=== PATIENT | male | born 1950 | race Caucasian/White ===

== ENCOUNTER → 2017-05-25 | Outpatient (CLI) | payer OTHER, MEDICARE ==
[~2017-05-25] MED LIST: ASPEC81 PO; CALC500C70 PO; LISI20TA3 PO; MULT-506 PO; OMEG10007 PO; PRLSR20 PO
[2017-05-25 12:37] LABS: HEMATOCRIT 45.1 % (42-52); MEAN CELL VOLUME 92.4 fL (80-100); MEAN CORPUSCULAR HEMOGLOBIN 30.5 pg (25-34); MEAN PLATELET VOLUME 12.6 fL (7.4-10.4); PLATELET COUNT 126 K/uL (130-400); RED BLOOD COUNT 4.88 M/uL (4.7-6.1); WHITE BLOOD COUNT 4.29 K/uL (4.8-10.8)
[2017-05-25 12:38] LABS: COMPLETE YES; EOSINOPHIL % 1.7 %; LYMPH ABS # 0.59 K/uL (1.2-3.4); LYMPHOCYTE % 13.8 %; NEUTROPHILS % 51.7 %; PLT ESTIMATE DECREASED; VARIANT LYMPHOCYTE % 23.3 %
[2017-05-25 12:40] LABS: BLOOD UREA NITROGEN 13 mg/dl (7-18); BUN/CREATININE RATIO 18.7 (10-20); CALCIUM 8.7 mg/dl (8.5-10.1); CARBON DIOXIDE 33 mmol/L (21-32); CHLORIDE 107 mmol/L (98-107); GLUCOSE 81 mg/dl (70-99); POTASSIUM 3.9 mmol/L (3.5-5.1); SODIUM 140 mmol/L (136-145)
[2017-05-25 12:43] LABS: CHOLESTEROL 156 mg/dl (0-200); CHOLESTEROL/HDL RATIO 3.7; HDL CHOLESTEROL 42 mg/dl; LDL CHOLESTEROL CALCULATED 80 mg/dl; TRIGLYCERIDES 172 mg/dl (0-150); VERY LOW DENSITY LIPOPROT CALC 34 mg/dl
== END | disposition home or self-care (01) ==
LOC: C.LAB 10:47
DX: D72.819 Decreased white blood cell count, unspecified (principal); E78.5 Hyperlipidemia, unspecified

== ENCOUNTER 2024-04-29 08:28 | Inpatient (IN) ==
--- NOTE | 2024-04-29 08:46 | Emergency Department Note ---
Impression & Plan SBO (small bowel obstruction), Abdominal pain ED Provider Note NAME: JENNA RIBEIRO AGE: 74 SEX: M : 1950 ARRIVES VIA: Walk-In INFORMANT: Patient, ED PROVIDER(S): Mason Travis DO CHIEF COMPLAINT: Abdominal pain HPI: The patient is a 74-year-old male who presented to the emergency department for an evaluation of abdominal pain. The patient describes lower abdominal pain which began approximately 1 week ago. The patient states the pain did worsen over the last 48 hours. He describes as a constant pain but sometimes it waxes and wanes with crampy pain. The patient denies having any vomiting at this time but he did have vomiting previously.. He has noticed some nausea. He denies having any black or tarry stools. The patient has not been seen by his family doctor. The patient came the emergency room today because of worsening pain. He denies having any chest pain or difficulty breathing. He did have a recent inguinal hernia repair. ROS: See above HPI for pertinent positives & negatives. A total of 10 systems reviewed and were otherwise negative. PAST MEDICAL HISTORY: See Below PAST SURGICAL HISTORY: See Below FAMILY HISTORY: See Below SOCIAL HISTORY: See Below HOME MEDICATIONS: See Below ALLERGIES: See Below VITALS: See Below PHYSICAL EXAMINATION: GENERAL: Patient is awake alert in no acute distress patient is resting comfortably and showing no signs of anxiety EYES: The conjunctivae are clear. The pupils are round and reactive. EARS, NOSE, MOUTH AND THROAT: The nose is without any evidence of any deformity. NECK: The neck is nontender and supple. RESPIRATORY: Normal respiratory effort is noted there is no evidence of wheezing rhonchi or rales CARDIOVASCULAR: Regular rate and rhythm noted there no murmurs rubs or gallops normal S1 normal S2. GASTROINTESTINAL: The abdomen was distended. There is diffuse tenderness to palpation but especially in the left upper and left lower quadrants. There is guarding in the left upper quadrant. MUSCULOSKELETAL/EXTREMITIES: There is no evidence of gross deformity full range of motion is noted in the hips and shoulders. SKIN: There is no obvious evidence of any rash. There are no petechiae, pallor or cyanosis noted. NEUROLOGIC: Patient is awake alert and oriented x3. MEDICAL DECISION MAKING: The patient is a 74-year-old male who presented to the emergency department for an evaluation of abdominal pain. The patient had abdominal pain going on for approximately 1 week. The patient was having some nausea and vomiting. Pain worsened over the course the last 48 hours so he presented to the emergency department. He is status post inguinal hernia repair. He does have a history of a previous left inguinal hernia repair. I discussed the patient's laboratory and radiographic studies with him. I discussed his condition with the on-call general surgical group. They have agreed to evaluate the patient in the emergency department. After evaluation he felt he was a good candidate for surgical intervention. Triage Nursing notes reviewed. Prior medical records reviewed Vital Signs: reviewed and remarkable for elevated blood pressure. Differential diagnosis: Etiologies such as appendicitis, diverticulitis, obstruction, inflammatory bowel disease, renal colic, PUD, biliary pathology, pancreatitis, mesenteric ischemia, aortic pathology, infections, genitourinary, UTI, perforated viscus, as well as others were entertained. ER treatment provided: See below Diagnostics interpreted by me: ECG: none Cardiac Monitoring: An order was placed for continuous cardiac monitoring. The monitor shows a rate of 50 bpm with sinus bradycardia. Laboratory studies: As stated above and show below. Imaging studies: See below. Radiographic imaging was reviewed by myself Consultation(s): I did asha this case with [facility] who is on for general surgery. Past Med/Surg History Problem List (Updated 04/29/24 @ 11:39 by Mason Travis DO) Abdominal pain (Acute) SBO (small bowel obstruction) (Acute) Small bowel obstruction Mental status alteration Medical History History of mitral valve prolapse 5 YR AGO, PT TOLD CLEARED UP Vegan diet HX BRAIN FOG AFTER JOGGING 2020...CARDIAC & NEURO TESTING...NORMAL...DETERMINED TO BE R/T DEPLETED PROTEIN INTAKE PT FASTS EVERY 2 WEEKS FOR A CONSECUTIVE 2 DAYS TO CONTROL HIS WEIGHT Post-nasal drip CHRONIC SINCE AGE 20'S / NO CHANGE IN BASELINE Low back problem NO LIMITATIONS /CONTROLS WITH EXCERCISE Redundant colon History of constipation WBC decreased MONITORS Borderline high cholesterol HX /NOT SURE CURRENT DETAILS /MONITOR History of high blood pressure TX FOR IN PAST, NO TX FOR > 5 YRS Surgical History Hx of cataract extraction LEFT History of tonsillectomy History of surgery BENIGN CYST REMOVED LEFT WRIST History of inguinal hernia History of colonoscopy Family History Sister Family history of diabetes mellitus Social History Smoking Status: Never smoker Second Hand Exposure: No; Do You Dip or Chew Tobacco: No; Hx Alcohol Use: Yes (MAYBE 4 PER YR) Alcohol type: wine Hx Substance Use: No Preferred Language: Azerbaijani Communication Ability: Effective Sleeve Baster Required: No Beliefs That Will Affect Care: None Current Living Situation: Spouse Feels Safe at Home: Yes Assistive Devices: Glasses Allergies Allergies Allergy/AdvReac Type Severity Reaction Status Date / Time No Known Allergies Allergy Verified 09/12/22 08:27 Home Meds Home Medications Medication Instructions Recorded Confirmed cyanocobalamin (vitamin B-12) 1,000 mcg PO QAM 08/31/22 09/12/22 1,000 mcg tablet (Vitamin B-12) guar gum 1 packet PO QAM 08/31/22 09/12/22 multivitamin 1 cap PO BID 08/31/22 09/12/22 omega-3 fatty acids 1,000 mg PO BID 08/31/22 09/12/22 polysaccharide iron complex 150 mg 150 mg PO QAM 08/31/22 09/12/22 iron capsule (iFerex 150) Results & Data (ED) Vital Signs Vital Signs - 24 hr 04/29/24 08:32 04/29/24 09:00 04/29/24 09:26 Temperature 36.5 C Temperature Source Temporal Artery Scan Pulse Rate 92 H 47 L Pulse Rate [Apical] Pulse Rate from SpO2 Sensor Respiratory Rate 18 Respiratory Effort / Characteristics Non-Labored Spontaneous Respiratory Depth Normal Respiratory Pattern Regular Blood Pressure 180/85 H Blood Pressure [Left Arm] Blood Pressure Mean 116 Blood Pressure Mean [Left Arm] Blood Pressure Position Lying Blood Pressure Position [Left Arm] Pulse Oximetry 95 Oxygen Delivery Method Room Air Room Air Sepsis Recent Fever Within 48 Hours No Sepsis New/Unexplained Change in Mental Status N/A Sepsis Action Taken by Nursing No Action Required 04/29/24 09:33 04/29/24 10:09 04/29/24 10:30 Temperature Temperature Source Pulse Rate 46 L 57 L 45 L Pulse Rate [Apical] Pulse Rate from SpO2 Sensor 45 L 56 L 47 L Respiratory Rate 17 21 17 Respiratory Effort / Characteristics Respiratory Depth Respiratory Pattern Blood Pressure 141/75 H 151/82 H Blood Pressure [Left Arm] Blood Pressure Mean 97 105 Blood Pressure Mean [Left Arm] Blood Pressure Position Blood Pressure Position [Left Arm] Pulse Oximetry 98 98 99 Oxygen Delivery Method Room Air Room Air Sepsis Recent Fever Within 48 Hours Sepsis New/Unexplained Change in Mental Status Sepsis Action Taken by Nursing 04/29/24 10:31 04/29/24 10:46 04/29/24 10:50 Temperature 36.8 C Temperature Source Oral Pulse Rate Pulse Rate [Apical] 53 L 50 L Pulse Rate from SpO2 Sensor Respiratory Rate 18 17 Respiratory Effort / Characteristics Non-Labored Spontaneous Respiratory Depth Normal Respiratory Pattern Regular Blood Pressure Blood Pressure [Left Arm] 151/82 H 145/84 H Blood Pressure Mean Blood Pressure Mean [Left Arm] 105 104 Blood Pressure Position Blood Pressure Position [Left Arm] Semi-fowlers Pulse Oximetry 99 98 Oxygen Delivery Method Room Air Room Air Room Air Sepsis Recent Fever Within 48 Hours Sepsis New/Unexplained Change in Mental Status Sepsis Action Taken by Correction Medications Current Medication List: was personally reviewed by me Laboratory Data Attestation: I reviewed the patient's lab results. 04/29/24 08:52 04/29/24 08:52 Lab Results 04/29/24 04/29/24 Range/Units 08:52 08:59 WBC 9.73 (4.8-10.8) K/ul RBC 4.90 (4.70-6.10) M/uL Hgb 15.0 (14.0-18.0) g/dl POC Hgb 15.6 (14.0-18.0) g/dl Hct 45.5 (42.0-52.0) % POC Hct 46 (42-52) % MCV 92.9 (80.0-100.0) fL MCH 30.6 (25.0-34.0) pg MCHC 33.0 (32.0-36.0) g/dL RDW Std Deviation 44.2 (36.4-46.3) fL RDW Coeff of Amari 12.9 (11.5-14.5) % Plt Count 144 (130-400) K/uL MPV 12.4 (9.4-12.4) fL Immature Gran % (Auto) 0.3 % Neut % (Auto) 89.2 % Lymph % (Auto) 5.7 % [place] % (Auto) 4.7 % Eos % (Auto) 0.0 % Baso % (Auto) 0.1 % Neut # (Auto) 8.68 H (1.40-6.50) K/uL Lymph # (Auto) 0.55 L (1.20-3.40) K/uL [place] # (Auto) 0.46 (0.11-0.59) K/uL Eos # (Auto) 0.00 (0.00-0.50) K/uL Baso # (Auto) 0.01 (0.00-0.20) K/uL Immature Gran # (Auto) 0.03 (0.01-0.20) K/uL POC Sodium 138 (135-144) mmol/L Sodium 137 (136-145) mmol/L POC Potassium 4.3 (3.3-5.0) mmol/L Potassium 4.3 (3.5-5.1) mmol/L POC Chloride 101 (101-112) mmol/L Chloride 103 (98-107) mmol/L Carbon Dioxide 28 (21-32) mmol/L POC Total CO2 25 (24-31) mmol/L Anion Gap 6 (3-11) POC Anion Gap 18.0 (16-25) mmol/L POC BUN 22 H (7-18) mg/dl BUN 22 (6-23) mg/dl Creatinine 0.80 (0.6-1.4) mg/dl POC Creatinine 0.7 (0.6-1.3) mg/dl Est Cr Clr Drug Dosing 73.4 ml/min eGFR 92.29 BUN/Creatinine Ratio 27.5 H (10-20) Glucose 144 H (70-99(Fasting)) mg/dl POC Glucose (other) 143 H (70-99) mg/dl Calcium 10.0 (8.6-10.3) mg/dl POC Ioniz Calcium Kathy 1.22 (1.12-1.32) mmol/l Total Bilirubin 0.5 (0.2-1.0) mg/dl AST 20 (13-39) U/L ALT 12 (7-52) U/L Alkaline Phosphatase 61 (34-104) U/L Total Protein 6.8 (6.0-8.3) gm/dl Albumin 4.5 (3.4-5.0) gm/dl Globulin 2.3 L (2.5-4.0) gm/dl Albumin/Globulin Ratio 2.0 (0.9-2) Lipase 13 (11-82) U/L Administered Medications Discontinued Medications Acetaminophen (Ofirmev) 1,000 mg in 100 mls @ 400 mls/hr IV NOW STA Stop: 04/29/24 08:53 Last Infusion: 04/29/24 09:20 Dose: Infused Documented By: Admin: 04/29/24 09:05 Dose: 400 mls/hr Documented By: COY Piperacillin Sod/Tazobactam Sod (Zosyn) 4.5 gm in 100 mls @ 200 mls/hr IV NOW ONE; Protocol Stop: 04/29/24 09:55 Last Infusion: 04/29/24 10:27 Dose: Infused Documented By: Admin: 04/29/24 09:57 Dose: 200 mls/hr Documented By: COY Ioversol (Optiray 320 100ml) 94 ml IV ONCE ONE Stop: 04/29/24 09:19 Last Admin: 04/29/24 09:18 Dose: 94 ml Documented By: ADRIANA Ondansetron HCl (Ondansetron Inj 2 Mg/Ml 2 Ml Vial) 4 mg IV NOW STA Stop: 04/29/24 08:40 Last Admin: 04/29/24 09:05 Dose: 4 mg Documented By: COY Imaging Data Attestation: I personally reviewed and interpreted this imaging study as follows: My Impression: CT of the abdomen and pelvis was obtained in the emergency department. My interpretation is signs of bowel obstruction noted, no free air, final report below. Radiologist's Impression: Abdomen/Pelvis CT 04/29/24 08:39 CT OF THE ABDOMEN AND PELVIS WITH CONTRAST CLINICAL HISTORY: Lower abdominal pain. COMPARISON STUDY: None. TECHNIQUE: Following IV administration of 94 mL of Optiray, axial images of the abdomen and pelvis were obtained from the lung bases to the proximal femurs. Images were reviewed in the axial, sagittal, and coronal planes. IV contrast was administered without complication. Automated exposure control was utilized for the study. A dose lowering technique was utilized adhering to the principles of ALARA. CT DOSE: 598.18 mGy.cm FINDINGS: Mild circumferential distal esophageal wall thickening is present. There is a trace right pleural effusion. No pneumatosis, free air or portal venous gas is present. There is no biliary or pancreatic ductal dilatation. The gallbladder is mildly distended. A few subcentimeter hypodense hepatic lesions favor cysts. A low-attenuation 1.2 cm left adrenal nodule is likely benign. The right adrenal gland, kidneys and pancreas are unremarkable. A small amount of abdominal and pelvic ascites is noted. The mid to distal small bowel is moderately dilated and fluid-filled. Stool is noted within multiple small bowel loops. Transition point in close proximity to one another within the right lower quadrant are noted. There is swirling of the mesentery. Apparent defect is noted which contains multiple small bowel loops as well as probable involvement of the cecum. There is associated ascites and mesenteric edema. A short segment intussusception within the small bowel on image 167 is of doubtful significance. Prostate is mildly enlarged. There are postoperative findings consistent with right inguinal hernia repair. IMPRESSION: 1. Findings consistent with a high-grade small bowel obstruction with transition points within the right lower quadrant and swirling of the mesentery and probable involvement of the cecum. The findings raise the possibility of an internal hernia with possible closed loop obstruction. Associated ascites and mesenteric edema. Surgical consultation is recommended. 2. Previous right inguinal hernia repair. ACT 112: Negative or not required by law. Electronically signed by: Jac Edgar M.D. 04/29/2024 9:39 AM Discharge Plan Visit Data Chief Complaint: Abdominal Pain Stated Complaint: SEVERE ABD PAIN, DOC REF ED Provider: Mason Travis Discharge Problem: SBO (small bowel obstruction), Abdominal pain Patient Disposition: Being Evaluated by Surgeon Discharge Instructions Interventions: ED Discharge Assessment Last Done: 04/29/24 10:46 Discharge Problem: Abdominal pain Qualifiers: Abdominal location: left lower quadrant Qualified Code(s): R10.32 - Left lower quadrant pain
[2024-04-29] MEDS: ACETAMINOPHEN 1,000 MG/100 ML VIAL IV STA (09:05)
[2024-04-29] MEDS: ONDANSETRON INJ 2 MG/ML 2 ML VIAL IV STA (09:05)
[2024-04-29 09:10] LABS: iSTAT Creatinine 0.7 mg/dl (0.6-1.3); iSTAT Hemoglobin 15.6 g/dl (14.0-18.0); iSTAT Ionized Calcium 1.22 mmol/l (1.12-1.32); iSTAT Potassium 4.3 mmol/L (3.3-5.0)
[2024-04-29 09:15] LABS: Basophils # (auto) 0.01 K/uL (0.00-0.20); Basophils % (auto) 0.1 %; Hematocrit (blood only) 45.5 % (42.0-52.0); Immature Granulocytes # (auto) 0.03 K/uL (0.01-0.20); Immature Granulocytes % (auto) 0.3 %; Lymphocytes # (auto) 0.55 K/uL (1.20-3.40); Lymphocytes % (auto) 5.7 %; Mean Corpuscular Hemoglobin 30.6 pg (25.0-34.0); Mean Corpuscular Volume 92.9 fL (80.0-100.0); Mean Platelet Volume 12.4 fL (9.4-12.4); Monocytes # (auto) 0.46 K/uL (0.11-0.59); Monocytes % (auto) 4.7 %; Neutrophils # (auto) 8.68 K/uL (1.40-6.50); Neutrophils % (auto) 89.2 %; Platelet Count 144 K/uL (130-400); RDW Coefficient of Variation 12.9 % (11.5-14.5); RDW Standard Deviation 44.2 fL (36.4-46.3); White Blood Count 9.73 K/ul (4.8-10.8)
[2024-04-29] MEDS: OPTIRAY 320 100ml IV ONE (09:18)
[2024-04-29 09:33] LABS: Albumin Level 4.5 gm/dl (3.4-5.0); BUN Creatinine Ratio 27.5 (10-20); Bilirubin,Total 0.5 mg/dl (0.2-1.0); Creatinine Clr Calc Pharmacy 73.4 ml/min; Globulin 2.3 gm/dl (2.5-4.0); Potassium 4.3 mmol/L (3.5-5.1); Total Protein 6.8 gm/dl (6.0-8.3)
--- NOTE | 2024-04-29 09:41 | CT Scan Report ---
CT OF THE ABDOMEN AND PELVIS WITH CONTRAST CLINICAL HISTORY: Lower abdominal pain. COMPARISON STUDY: None. TECHNIQUE: Following IV administration of 94 mL of Optiray, axial images of the abdomen and pelvis we re obtained from the lung bases to the proximal femurs. Images were reviewed in the axial, sagittal, and coronal planes. IV contrast was administered without complication. Automated exposure control wa s utilized for the study. A dose lowering technique was utilized adhering to the principles of ALARA . CT DOSE: 598.18 mGy.cm FINDINGS: Mild circumferential distal esophageal wall thickening is present. There is a trace right p leural effusion. No pneumatosis, free air or portal venous gas is present. There is no biliary or cisneros creatic ductal dilatation. The gallbladder is mildly distended. A few subcentimeter hypodense hepatic lesions favor cysts. A low-attenuation 1.2 cm left adrenal nodule is likely benign. The right adrena l gland, kidneys and pancreas are unremarkable. A small amount of abdominal and pelvic ascites is not ed. The mid to distal small bowel is moderately dilated and fluid-filled. Stool is noted within multi ple small bowel loops. Transition point in close proximity to one another within the right lower quad rant are noted. There is swirling of the mesentery. Apparent defect is noted which contains multiple small bowel loops as well as probable involvement of the cecum. There is associated ascites and mesen teric edema. A short segment intussusception within the small bowel on image 167 is of doubtful signi ficance. Prostate is mildly enlarged. There are postoperative findings consistent with right inguina l hernia repair. IMPRESSION: 1. Findings consistent with a high-grade small bowel obstruction with transition points within the ri ght lower quadrant and swirling of the mesentery and probable involvement of the cecum. The findings raise the possibility of an internal hernia with possible closed loop obstruction. Associated ascites and mesenteric edema. Surgical consultation is recommended. 2. Previous right inguinal hernia repair. ACT 112: Negative or not required by law. Electronically signed by: Jac Edgar M.D. 04/29/2024 9:39 AM
[2024-04-29] MEDS: PIPERACILLIN/TAZOBACTAM 4.5 GM/100 ML BAG IV ONE (09:57)
--- NOTE | 2024-04-29 10:23 | History & Physical Report ---
Date of Service April 29, 2024 Assessment & Plan (1) Small bowel obstruction: Plan: His CT images and results were personally viewed and interpreted by myself He does have a high-grade small bowel obstruction and concern for a closed-loop small bowel obstruction Based on his imaging findings and abdominal exam, we will proceed with emergent exploration Will plan on exploratory laparotomy, possible bowel resection, possible ostomy Consent was obtained, risks discussed including bleeding, infection, anastomotic leak History of Present Illness Chief Complaint: Small bowel obstruction Primary Care Provider: Julian Gray DO This is a 74-year-old male who presented to the ER with 2 weeks of abdominal pain, generalized in nature. He states that over the last day or so the pain got significantly worse. He describes it as sharp cramping that comes and goes. No aggravating or relieving factors. He has had nausea and emesis as well. His last normal bowel movement was yesterday. He states he is not passing flatus. He did have a history of a laparoscopic right inguinal hernia repair in February 2024 with [facility] general surgery at [facility]. Otherwise he has had no abdominal surgeries. He denies any fevers or chills. Allergies Allergy/AdvReac Type Severity Reaction Status Date / Time No Known Allergies Allergy Verified 09/12/22 08:27 Home Medications Medication Instructions Recorded Confirmed Type cyanocobalamin (vitamin B-12) 1,000 mcg PO QAM 08/31/22 09/12/22 History 1,000 mcg tablet (Vitamin B-12) guar gum 1 packet PO QAM 08/31/22 09/12/22 History multivitamin 1 cap PO BID 08/31/22 09/12/22 History omega-3 fatty acids 1,000 mg PO BID 08/31/22 09/12/22 History polysaccharide iron complex 150 mg 150 mg PO QAM 08/31/22 09/12/22 History iron capsule (iFerex 150) Past Med/Surg History Problem List (Updated 04/29/24 @ 10:21 by Ivan Edwards DO) Small bowel obstruction Mental status alteration Medical History History of mitral valve prolapse 5 YR AGO, PT TOLD CLEARED UP Vegan diet HX BRAIN FOG AFTER JOGGING 2020...CARDIAC & NEURO TESTING...NORMAL...DETERMINED TO BE R/T DEPLETED PROTEIN INTAKE PT FASTS EVERY 2 WEEKS FOR A CONSECUTIVE 2 DAYS TO CONTROL HIS WEIGHT Post-nasal drip CHRONIC SINCE AGE 20'S / NO CHANGE IN BASELINE Low back problem NO LIMITATIONS /CONTROLS WITH EXCERCISE Redundant colon History of constipation WBC decreased MONITORS Borderline high cholesterol HX /NOT SURE CURRENT DETAILS /MONITOR History of high blood pressure TX FOR IN PAST, NO TX FOR > 5 YRS Surgical History Hx of cataract extraction LEFT History of tonsillectomy History of surgery BENIGN CYST REMOVED LEFT WRIST History of inguinal hernia History of colonoscopy Family History Sister Family history of diabetes mellitus Social History Smoking Status: Never smoker Second Hand Exposure: No; Do You Dip or Chew Tobacco: No; Hx Alcohol Use: Yes (MAYBE 4 PER YR) Alcohol type: wine Hx Substance Use: No Preferred Language: Filipino Communication Ability: Effective Web Design Specialist Required: No Beliefs That Will Affect Care: None Current Living Situation: Spouse Feels Safe at Home: Yes Assistive Devices: Glasses Review of Systems Constitutional: no fever and no chills Eyes: no blind spots and no worsening vision Ear, Nose, Mouth, Throat: no ear pain, no tinnitus and no nasal congestion Respiratory: no cough and no dyspnea Cardiovascular: no chest pain and no dyspnea on exertion Gastrointestinal: + abdominal pain, + nausea, + vomiting a nd + constipation; no diarrhea/loose stools and no blood in stools Genitourinary: no dysuria or no urinary incontinence Musculoskeletal: no back pain and no neck pain Integumentary: no acne, no skin ulcer and no erythema Neurologic: no gait abnormality, no unsteadiness and no headache(s) Psychiatric: no behavioral changes and no depression Hematologic / Lymphatic: no easy bleeding and no easy bruising Physical Exam Constitutional: WD/WN, vitals as above Eyes: PERRL, conjunctivae normal, anicteric sclerae ENMT: external ear and nose normal, oropharynx normal Neck: trachea midline, no thyromegaly Respiratory: normal respiratory effort, lungs clear to auscultation Cardiovascular: RRR, no murmur, no edema Gastrointestinal (Abdomen): Inspection/Auscultation: abdomen normal to inspection and + abdomen distended Percussion/Palpation: + abdomen tender (Generalized), + guarding (Right lower quadrant) and abdomen soft; abdomen not rigid and no hernia Musculoskeletal: no cyanosis or clubbing, extremities motor strength 5/5 Skin: no rashes, warm and dry Neurologic: PERRL, EOMI, accommodation nl, no face palsy, no dysarthria Psychiatric: A+Ox3, euthymic affect Results & Data Results & Data Vital Signs (Past 12 Hours) Vital Signs Temp Pulse Resp BP Pulse Ox O2 Del Method 04/29/24 09:33 46 L 17 141/75 H 98 04/29/24 09:26 47 L 04/29/24 09:00 Room Air 04/29/24 08:32 36.5 C 92 H 18 180/85 H 95 Room Air Diagnostic Findings CT OF THE ABDOMEN AND PELVIS WITH CONTRAST CLINICAL HISTORY: Lower abdominal pain. COMPARISON STUDY: None. TECHNIQUE: Following IV administration of 94 mL of Optiray, axial images of the abdomen and pelvis were obtained from the lung bases to the proximal femurs. Images were reviewed in the axial, sagittal, and coronal planes. IV contrast was administered without complication. Automated exposure control was utilized for the study. A dose lowering technique was utilized adhering to the principles of ALARA. CT DOSE: 598.18 mGy.cm FINDINGS: Mild circumferential distal esophageal wall thickening is present. There is a trace right pleural effusion. No pneumatosis, free air or portal venous gas is present. There is no biliary or pancreatic ductal dilatation. The gallbladder is mildly distended. A few subcentimeter hypodense hepatic lesions favor cysts. A low-attenuation 1.2 cm left adrenal nodule is likely benign. The right adrenal gland, kidneys and pancreas are unremarkable. A small amount of abdominal and pelvic ascites is noted. The mid to distal small bowel is moderately dilated and fluid-filled. Stool is noted within multiple small bowel loops. Transition point in close proximity to one another within the right lower quadrant are noted. There is swirling of the mesentery. Apparent defect is noted which contains multiple small bowel loops as well as probable involvement of the cecum. There is associated ascites and mesenteric edema. A short segment intussusception within the small bowel on image 167 is of doubtful significance. Prostate is mildly enlarged. There are postoperative findings consistent with right inguinal hernia repair. IMPRESSION: 1. Findings consistent with a high-grade small bowel obstruction with transition points within the right lower quadrant and swirling of the mesentery and probable involvement of the cecum. The findings raise the possibility of an internal hernia with possible closed loop obstruction. Associated ascites and mesenteric edema. Surgical consultation is recommended. 2. Previous right inguinal hernia repair. PG Care Time/CCT Total # of Minutes Spent Total Time Spent with Patient: Total time spent is greater than 50% in coordination of care (as documented) at patient's floor/unit and/or counseling patient: Coding Level of Care Code 75412 INT INP/OBS CARE MIN Diagnoses Small bowel obstruction K56.609
[2024-04-29] MEDS ORDERED: SUCCINYLCHOLINE 100MG/5ML SYR IV ONE (10:29)
[2024-04-29] MEDS ORDERED: PROPOFOL IV EMULSION 10 MG/ML 20 ML VIAL IV ONE (10:29)
[2024-04-29] MEDS ORDERED: fentaNYL citrate PF 100 MCG/2 ML VIAL ONE ×2 (10:29→12:00)
[2024-04-29] MEDS ORDERED: ONDANSETRON INJ 2 MG/ML 2 ML VIAL ONE (10:29)
[2024-04-29] MEDS ORDERED: DEXAMETHASONE SOD INJ 4 MG/ML VIAL ONE (10:29)
[2024-04-29] MEDS ORDERED: LIDOCAINE 2% 2 ML VIAL/AMP(20MG/ML) INFIL ONE (10:29)
[2024-04-29] MEDS ORDERED: MIDAZOLAM HCL 1 MG/ML 2ML VIAL ONE (10:29)
[2024-04-29] MEDS ORDERED: ROCURONIUM BROMIDE 10 MG/ML 5 ML VIAL IV ONE ×6 (10:31)
[2024-04-29] MEDS ORDERED: DROPERIDOL 5 MG/2 ML VIAL IV PRN (10:39)
[2024-04-29] MEDS ORDERED: ATROPINE SULFATE 0.1 MG/ML 10ML SYR IV PRN (10:39)
[2024-04-29] MEDS ORDERED: ONDANSETRON INJ 2 MG/ML 2 ML VIAL IV PRN ×2 (10:39→14:47)
[2024-04-29] MEDS ORDERED: ePHEDrine sulfate 50 MG/ML AMP IV PRN (10:39)
--- NOTE | 2024-04-29 10:39 | Anesthesiology Consultation ---
Date of Service April 29, 2024 Assessment & Plan Chart Review Chart Review: Acceptable Risk for Surgery and Patient NOT seen in Pre Admission Testing Consults Requested none History Surgery Operation Date: 04/29/24 08:20 Proposed Procedures p Exploratory Laparotomy with Release of Bowel Obstruction, Possible Bowel Resection, Possible Ostomy - Ivan Edwards DO Height/Weight Height: 5 ft 7.5 in Weight: 65 kg Allergies Allergy/AdvReac Type Severity Reaction Status Date / Time No Known Allergies Allergy Verified 09/12/22 08:27 Medications Home Medications Medication Instructions Recorded Confirmed Last Taken cyanocobalamin (vitamin B-12) 1,000 mcg PO QAM 08/31/22 09/12/22 09/11/22 1,000 mcg tablet (Vitamin B-12) guar gum 1 packet PO QAM 08/31/22 09/12/22 09/11/22 multivitamin 1 cap PO BID 08/31/22 09/12/22 09/11/22 omega-3 fatty acids 1,000 mg PO BID 08/31/22 09/12/22 09/11/22 polysaccharide iron complex 150 mg 150 mg PO QAM 08/31/22 09/12/22 09/11/22 iron capsule (iFerex 150) Past Medical History Medical History History of mitral valve prolapse 5 YR AGO, PT TOLD CLEARED UP Vegan diet HX BRAIN FOG AFTER JOGGING 2020...CARDIAC & NEURO TESTING...NORMAL...DETERMINED TO BE R/T DEPLETED PROTEIN INTAKE PT FASTS EVERY 2 WEEKS FOR A CONSECUTIVE 2 DAYS TO CONTROL HIS WEIGHT Post-nasal drip CHRONIC SINCE AGE 20'S / NO CHANGE IN BASELINE Low back problem NO LIMITATIONS /CONTROLS WITH EXCERCISE Redundant colon History of constipation WBC decreased MONITORS Borderline high cholesterol HX /NOT SURE CURRENT DETAILS /MONITOR History of high blood pressure TX FOR IN PAST, NO TX FOR > 5 YRS Past Family History Family History Sister Family history of diabetes mellitus Past Surgical History Surgical History Hx of cataract extraction LEFT History of tonsillectomy History of surgery BENIGN CYST REMOVED LEFT WRIST History of inguinal hernia History of colonoscopy Social History Smoking Status: Never smoker Do You Dip or Chew Tobacco: No Hx Alcohol Use: Yes (MAYBE 4 PER YR) Alcohol type: wine alcohol intake frequency: holidays/special occasions only Hx Substance Use: No substance use type: does not use Physical Exam Vital Signs Last Vital Signs Temp 36.5 C 04/29/24 08:32 Pulse 53 L 04/29/24 10:31 Resp 18 04/29/24 10:31 BP 151/82 H 04/29/24 10:31 Pulse Ox 99 04/29/24 10:31 O2 Del Method Room Air 04/29/24 10:31 Testing Laboratory Results 04/29/24 08:52 04/29/24 08:52 04/29/24 08:59 POC Glucose (other) 143 H
[2024-04-29] MEDS: ceFAZolin 2000MG 2,000 MG/15 ML SYR IV ONE (11:44)
[2024-04-29] MEDS ORDERED: ceFAZolin 330 MG/ML 1 GM VIAL ONE ×2 (11:45)
[2024-04-29] MEDS ORDERED: SUGAMMADEX SODIUM 200 MG/2 ML VIAL IV ONE (12:02)
[2024-04-29] MEDS ORDERED: METOPROLOL TARTRATE 1 MG/ML VIAL IV ONE (12:19)
[2024-04-29] MEDS: BUPIVACAINE/EPINEPHRINE 0.25% 1:200,000 30 ML VIAL ONE (12:25)
[2024-04-29] MEDS ORDERED: hydrALAZINE HCL 20 MG/ML VIAL ONE (12:32)
--- NOTE | 2024-04-29 12:34 | Operative Report ---
PG Post Operative Report Pre & Post Diagnosis Operation Date: 04/29/24 08:20 Pre-Op Diagnosis: Small bowel obstruction Post-Op Diagnosis: Small bowel obstruction secondary to adhesion/staple in RLQ I identified the patient and participated in the time-out.: Yes Procedure Operation Date: 04/29/24 08:20 Actual Procedures p Exploratory Laparotomy with Release of Bowel Obstruction, Reduction of Internal Hernia - Ivan Edwards DO Surgeon Ivan Edwards DO Auto Tune Up Mechanic Gypsy Rico PA-C Estimated Blood Loss 25 Findings See Below Portion of terminal ileum attached to the right lateral sidewall with a staple from previous right inguinal hernia repair Specimens None Drains None Anesthesia Type General Complications none Disposition Disposition: Recovery Room Indications 74-year-old male with a closed-loop small bowel obstruction Description of Procedure The patient was brought to the OR and placed in the supine position with both arms abducted. At this time he underwent general endotracheal anesthesia without any problems. He was given appropriate pre-operative antibiotics. His abdomen was prepped and draped in the usual sterile fashion. Timeout was called. The procedure was verified as Exploratory laparotomy, possible bowel resection, possible ostomy. Surgical, anesthesia and nursing teams agreed and the procedure was begun. A standard midline incision was made using a #10 blade scalpel. This was carried down to the fascia using electrocautery. The midline fascia was then incised with electrocautery. The peritoneum was then entered bluntly. The incision was then opened up through its entirety. We immediately encountered some murky ascites and some mildly ischemic small bowel that was dilated. After placing retractors in the abdomen there was a portion of ileum that was adhered to the right lower quadrant at the site of his previous hernia repair. This was carefully lysed using electrocautery. We then started running the small bowel and it appeared that there was another staple found just proximal to the ileocecal valve right where the mesentery entered the bowel and this was adhered to another loop of small bowel causing a closed-loop obstruction. The staple was carefully removed and the bowel freed up. At this point the small bowel was eviscerated and ran from the ligament of Treitz to the cecum. The area of ileum that was involved in the obstruction turned pink very quickly and appeared viable. The mesentery was a little thickened from the obstruction but again without any signs of necrosis. There were no other adhesions within the abdomen or any areas of obstruction seen while running the small bowel. NG tube was confirmed in the correct position. The small bowel was placed back in the peritoneal cavity. At this point the wound was then irrigated until clear. Hemostasis was achieved using electrocautery. Hemostasis was complete. The fascia was then closed in a running fashion using 2 #1 looped PDS suture starting superiorly and inferiorly and meeting in the middle. Skin was closed with ann marie. Sterile dressing was applied. All needle and sponge counts were correct x 2. At this point the patient was awakened from anesthesia, and transported to PACU in stable condition. The physician marketing operations assistant was present and scrubbed for the entirety of the case. He was critical in positioning the patient, prepping and draping, retraction and exposure, closure of the incision and placement of the dressings. I attest to the content of the Intraoperative Record and any orders documented therein. Any exceptions are noted below.
[2024-04-29] MEDS: fentaNYL citrate PF 100 MCG/2 ML VIAL IV PRN (12:57)
[2024-04-29] MEDS: hydrALAZINE HCL 20 MG/ML VIAL ONE (13:32)
[2024-04-29] MEDS: hydrALAZINE HCL 20 MG/ML VIAL IV STA (13:32)
[2024-04-29] MEDS: HYDROmorphone INJ 1 MG/ML SYRINGE IV PRN (13:37)
--- NOTE | 2024-04-29 13:51 | Anesthesiology Progress Note ---
Date of Service April 29, 2024 Anesthesia Post Procedure Vital Signs Vital Signs: Temp Pulse Pulse Resp BP BP Pulse Ox 04/29/24 13:50 93 H 18 157/93 H 97 04/29/24 13:40 60 12 182/108 H 100 04/29/24 13:30 55 L 13 171/80 H 100 04/29/24 13:20 49 L 13 188/103 H 99 04/29/24 13:10 50 L 12 199/102 H 97 04/29/24 13:00 48 L 16 214/107 H 96 04/29/24 12:40 36.6 C 55 L 16 189/123 H 93 04/29/24 10:50 36.8 C 50 L 17 145/84 H 98 04/29/24 10:46 04/29/24 10:31 53 L 18 151/82 H 99 04/29/24 10:30 45 L 17 151/82 H 99 04/29/24 10:09 57 L 21 98 04/29/24 09:33 46 L 17 141/75 H 98 04/29/24 09:26 47 L 04/29/24 09:00 04/29/24 08:32 36.5 C 92 H 18 180/85 H 95 O2 Del Method O2 Flow Rate 04/29/24 13:50 Oxymask 2 04/29/24 13:40 Oxymask 4 04/29/24 13:30 Oxymask 4 04/29/24 13:20 Oxymask 4 04/29/24 13:10 Oxymask 6 04/29/24 13:00 Oxymask 6 04/29/24 12:40 Room Air 04/29/24 10:50 Room Air 04/29/24 10:46 Room Air 04/29/24 10:31 Room Air 04/29/24 10:30 Room Air 04/29/24 10:09 Room Air 04/29/24 09:33 04/29/24 09:26 04/29/24 09:00 Room Air 04/29/24 08:32 Room Air Pain Intensity Abdomen: Pain Intensity: 6 Transfer of Care Handoff Completed per policy Notes Mental Status: alert / awake / arousable Patient Amnestic to Procedure: Yes Nausea / Vomiting: adequately controlled Pain: adequately controlled Airway Patency, RR, SpO2: stable & adequate BP & HR: stable & adequate Hydration State: stable & adequate Anesthetic Complications: no major complications apparent and Pt Satisfied with anesthetic care
--- OUTSIDE RECORDS SUMMARY | 2024-04-29 14:09 | External Medical Summary | Summary of Care ---
Author Name Unknown Organization [facility] Address [address] [place] [address] Phone [phone] Care Team Providers Care Gaming Department Head Name Role Phone Julian Gray DO Primary Care Provider [phone] Reason for Visit * Reason Comments Post-Op IHR. Encounter Details Date Type Department Care Team (Late st Contact Info) Description 03/05/2024 10:45 AM EDT [facility] [place] [address] Jon Saravia MD [address] [place] [address] Right inguinal hernia*; Postop check Allergies No known active allergiesdocumented as of this encounter (statuses as of 03/05/2024) Medications Medication Sig Dispensed Refills Start Date End Date Status DAILY VITAMIN FORMULA PO TABS one tablet daily Act norberto Benefiber Oral Powder Take by mouth 2 times a day with morning and evening meals . 1 tsp twice daily Active Triamcinolone Acetonide 0.1 % External Lotion (Aristocort)Indic ations:Seborrheic dermatitis Apply to rash in nicole twice daily for 10 days 60 mL 08/26/2023 Active Additional Information Patient not taking.Reported on 02/12/2024 Nutritional Supplement Plus Oral Liquid Take by mouth. Iron supplement I ferex Active Ketoconazole 2 % External Shampoo (Nizoral) Lather into scalp and nicole in shower, leave in for 5 minutes, then rinse. Do this three times per week 120 mL 11 12/12/2023 Active Probiotic & Acidophilus Ex St Oral Capsule Take 1 Capsule by mouth every morning. Active oxyCODONE-Acetami nophen 5-325 MG Oral Tablet (Percocet) Take 1 Tablet by mouth every 6 hours as needed for Pain, Moderate. 10 Tablet 02/21/2024 Discontinue d(End of Procedure) documented as of this encounter (statuses as of 03/05/2024) Active Problems Problem Noted Date Diagnosed Date Right inguinal hernia 12/10/2023 Pure hypercholesterolemia 12/05/2022 Chronic midline low back pain without sciatica 0 12/05/2022 Vegan diet 12/12/2021 documented as of this encounter (statuses as of 03/05/2024) Resolved Problems Problem Noted Date Diagnosed Date Resolved Date Brain fog 12/12/2021 10/18/2023 documented as of this encounter (statuses as of 03/05/2024) Immunizations Name Administration Dates Next Due COVID-19 mRNA, LNP-s, No Pre serve, 2-Dose Series (Ouner) 03/14/2021,08/30/2020,08/09/2020 COVID-19, MRNA-LNP, 23-24, P F, 50 MCG/0.5 mL, 12 YRS AND ABOVE, IM (MODERNA-Spikevax) 03/26/2023 COVID-19, mRNA, LNP-s, PF, B ooster, 100mcg/0.5mg (Moderna) 11/06/2021 Pneumococcal Conjugate Vacc, 13 Valent (Prevnar) 04/04/2015 Pneumococcal Polysaccharide PPV23 (Pneumovax) 05/18/2022,07/06/2012 Seasonal Influenza, High Dos e, Trivalent, PF, IM (Fluzone HD) 04/29/2019 Seasonal Influenza, Quadriva lent Hd (Fluzone Hd) 03/26/2023 Seasonal Influenza, Quadriva lent Hd, 65+ Yrs 02/27/2022 Seasonal Influenza, Recombin ant, RIV4, PF, (Flublock) 03/18/2020 TDAP, Age 7 and older, IM (Adacel) 05/26/2018, Varicella Zoster Vaccine (Adult) 12/21/2014 Zoster Vaccine Recombinant (Shingrix) 07/18/2022 ,05/18/2022 documented as of this encounter Social History Tobacco Use Types Packs/Day Years Used Date Smoking Tobacco: Never Passive Smoke Exposure: Past Smokeless Tobacco: Never Alcohol Use Standard Drinks/Week Comments Yes 0 (1 standard drink = 0.6 oz pur e alcohol) rare PHQ-2 Answer Date Recorded PHQ Adult Total Score 0 06/24/2023 Hunger Vital Sign Answer Date Recorded Within the past 12 months, y ou worried that your food would run out before you got the money to buy more. Never true 06/24/19 24 Within the past 12 months, t he food you bought just didn't last and you didn't have money to get more. Never true 06/24/2023 Childcare Answer Date Recorded Do you feel overwhelmed with taking care of a child, family member or friend? No 06/24/2023 Does your family need help f inding childcare? (Household - for ages 0-17 years) Not on file 06/24/2023 Clothing Answer Date Recorded Have you been unable to get clothing when it was really needed? No 06/24/2023 Is your family able to get c lothes or diapers when needed? (Household - for ages 0-17 years) Not on file 06/24/2023 Personal Safety Answer Date Recorded Do you feel unsafe or have concerns for your saf ety? No 06/24/2023 Do you have concerns for you r family's safety? (Household - for ages 0-17 years) Not on file 06/24/2023 Utilities Answer Date Recorded Do you have trouble paying y our heating, water, or electric bill? No 06/24/2023 Is your family able to pay t he heat, water, or electric bill? (Household - for ages 0-17 years) Not on file 06/24/2023 Does your family have access to good internet? (Household - for ages 0-17 years) Not on file 06/24/2023 Employment Status Answer Date Recorded Are you unemployed or without regular income? No 06/24/2023 Does the household have a re gular source of income? (Household - for ages 0-17 years) Not on file 06/24/2023 Social Connections Answer Date Recorded How often do you feel lonely or isolated from th ose around you? Never 06/24/2023 Financial Resource Strain Answer Date R ecorded Do you have any trouble payi ng for your medications, or do you think you might in the future? No 06/24/2023 Does your family have troubl e paying for medicine? (Household - for ages 0-17 years) Not on file 06/24/2023 Transportation Needs Answer Date Record ed READ ONLY Do you have troubl e getting a ride to medical visits or work? Never True 06/24/2023 Does your family have a hard time getting a ride to doctors visits? (Household - for ages 0-17 years) Not on file 06/24/2023 Has lack of transportation k ept you from medical appointments, meetings, work, or from getting things needed for daily living? Check all that apply. (Adult - for ages 18 years and over) Not on file 06/24/2023 Do you (or your family) have trouble finding or paying for a ride (transportation)? (Household - for ages 0-17 years) Not on file 06/24/2023 Housing Stability Answer Date Recorded Do you currently live in a s helter or have no steady place to sleep at night? No 06/24/2023 READ ONLY Do you think you a re at risk of becoming homeless? No 06/24/2023 Does your family worry about paying for your home or becoming homeless? (Household - for ages 0-17 years) Not on file 0 06/24/2023 Are you homeless or worried that you might be in the future? (Adult - for ages 18 years and over) Not on file Are you (or your family) connie eless or worried that you might be in the future? (Household - for ages 0-17 years) Not on file Food Insecurity Answer Date Recorded Do you need food for this week? No 06/24/2023 Are you able to get enough f ood for your family? (Household - for ages 0-17 years) Not on file 06/24/2023 Does your family need food t his week? (Household - for ages 0-17 years) Not on file 06/24/2023 Do you always have enough fo od for your family? (Household - for ages 0-17 years) Not on file 06/24/2023 Sex and Gender Information Value Date Recorded Sex Assigned at Male 01/04/2022 11:56 AM EDT Gender Identity Male 01/04/2022 11:56 AM EDT Sexual Orientation Straight 01/04/2022 11 :56 AM EDT Job Start Date Occupation Industry Not on file Not on file Not on file documented as of this encounter Last Filed Vital Signs Vital Sign Reading Time Taken Comments Blood Pressure - - Pulse - - Temperature 36.5 C (97.7 F) 03/05/2024 10:38 AM E DT Respiratory Rate - - Oxygen Saturation - - Inhaled Oxygen Concentration - - Weight - - Height - - Body Mass Index - - documented in this encounter Progress Notes * Jon Saravia MD - 03/05/2024 10:41 AM EDT Demetrius Guevara is s/p a lap right inguinal hernia repair with mesh on 02/21/2024. The patient is overall doing well. Pain is controlled without any medications. Fever has not been present. This patient has no wound drainage and has no wound erythema. The patient has no drains in place. Patient is slowly resuming normal activities but still refraining from heavy lifting as recommended. PE: Temperature 36.5 C (97.7 F). General: alert, healthy, and no distress Exam (Male): no abnormalities of scrotal contents, no hernia detected, testicular tenderness, hematoma present Incision site: healing well and clean, dry and intact Assessment: Demetrius Guevara is doing well. We discussed continued weight lifting restrictions fora full 3-4 weeks after surgery. All questions answered. Plan: follow - up 1 month Jon Saravia MD documented in this encounter Nursing Notes * Bryan Salas MED ASSIST - 03/05/2024 10:38 AM EDT Chief Complaint Patient presents with Post-Op IHR. Verified patient. No pain. Appetite is ok. Incision is healing well. Bowel movement is ok. documented in this encounter Plan of Treatment Upcoming Encounters Date Type Department Care Team (Late st Contact Info) Description 05/26/2024 2:00 PM EST Office Visit Family Practice [address] [place] [address] [facility] [place] [id number] Julian Gray, [address] [place] [address] Health Maintenance Due Date Last Done Comments COVID-19 Vaccine ( season) 2024 03/26/2023, 11/06/2021, 03/14/2021, Additional history exists Influenza Vaccine (FLU shot) (#1) 2024 03/26/2023, 02/27/2022, 03/18/2020, Additional history exists Adult Wellness Visit 05/15/2024 05/15/2023, 05/18/20 22 Depression Screening 06/24/2024 06/24/2023 Colonoscopy 08/09/2024 08/09/2021, 07/19, 08/09/2021, Additional history exists DTap/Tdap Vaccines (3 - Td or Tdap) 05/26/2028 05/26/2018, 02/12/2008 Pneumococcal Vaccine: 65+ Years Completed 05/18/2022, 04/04/2015, 07/06/2012 Zoster Vaccines Completed 07/18/2022, 07/2021, 12/21/2014 HPV (Gardasil) Vaccine Aged Out No lo nger eligible based on patient's age to complete this topic Hepatitis B Vaccine Aged Out No longe r eligible based on patient's age to complete this topic MENINGOCOCCAL (MENACTRA/MENVEO) Aged Out No longer eligible based on patient's age to complete this topic documented as of this encounter Medical Devices Implanted Type Area Surgical Garment Inspector Device Identifier Shelf Expiration Date Model / Serial / Lot Mesh 13x9cm Monofilament Hernia Anatomical Medium Right Preshaped With Marking Polypropylene Dextile - [id number] Implanted:Qty: 1 on 02/21/2024 by Jon Saravia MD at OR [facility] Right: Groin BORAIDIEN 02/15/2028 [id number] / / [id number] documented as of this encounter Visit Diagnoses Diagnosis Right inguinal hernia- Primary Inguinal hernia without mention of obstruction or gangrene, unilateral or unspecified, (not specified as recurrent) Postop check Follow-up examination, following unspecified surgery documented in this encounter Advance Directives * Full Code (Latest Code Status on File) Date Activated Date Inactivated Comments 02/21/2024 10:33 AM 02/21/2024 4:22 PM This order re flects the patients wishes and were consensually agreed upon. Question Answer Comments Discussion of Advance Directives occurred with: Patient * Full Code Date Activated Date Inactivated Comments 02/21/2024 8:06 AM 02/21/2024 10:33 AM This order re flects the patients wishes and were consensually agreed upon. Question Answer Comments Discussion of Advance Directives occurred with: Patient Care Teams Gaming Department Head Relationship Specialty Start Date End Date Julian Gray DO [address] [facility] [place] [address] PCP - General Internal Medicine 12/06/23 documented as of this encounter
--- OUTSIDE RECORDS SUMMARY | 2024-04-29 14:09 | External Medical Summary | Summary of Care ---
Author Name Unknown Organization [facility] Address [address] [place] [address] Phone [phone] Care Team Providers Care Monitor Car Operator Name Role Phone Julian Gray DO Primary Care Provider [phone] Reason for Visit * Reason Comments Follow Up Post-Op Lap IHR on 02/21/2024 Encounter Details Date Type Department Care Team (Late st Contact Info) Description 04/06/2024 3:45 PM EDT Office Visit General Surgery, [facility] [address] [place] [address] Jon Saravia MD [address] [place] [address] Right inguinal hernia*; Postop check Allergies No known active allergiesdocumented as of this encounter (statuses as of 04/06/2024) Medications Medication Sig Dispensed Refills Start Date End Date Status DAILY VITAMIN FORMULA PO TABS one tablet daily Act norberto Benefiber Oral Powder Take by mouth 2 times a day with morning and evening meals . 1 tsp twice daily Active Triamcinolone Acetonide 0.1 % External Lotion (Aristocort)Indicati ons:Seborrheic dermatitis Apply to rash in nicole twice [...] 1 Capsule by mouth every morning. Active Iron 325 (65 Fe) MG Oral Tablet Take by mouth. Active [place] III EPA+DHA 1000 MG Oral Capsule Take by mouth. Active documented as of this encounter (statuses as of 04/06/2024) Active Problems Problem Noted Date Diagnosed Date Right inguinal hernia 12/10/2023 Pure hypercholesterolemia 12/05/2022 Chronic midline low back pain without sciatica 0 12/05/2022 Vegan diet 12/12/2021 documented as of this encounter (statuses as of 04/06/2024) Resolved Problems Problem Noted Date Diagnosed Date Resolved Date Brain fog 12/12/2021 10/18/2023 documented as of this encounter (statuses as of 04/06/2024) Immunizations Name Administration Dates Next Due COVID-19 mRNA, LNP-s, No Pre serve, 2-Dose Series (Trendabl) 03/14/2021,08/30/2020,08/09/2020 COVID-19, MRNA-LNP, 23-24, P F, 50 [...] on file documented as of this encounter Progress Notes * Jon Saravia MD - 04/06/2024 3:44 PM EDT Demetrius Guevara is s/p a lap right inguinal hernia repair with mesh on 02/21/2024. The patient is overall doing well. The patient is not having any pain. Fever has not been present. This patient has no wound drainage and has no wound erythema. The patient has no drains in place. Patient is slowly resuming normal activities but still refraining from heavy lifting as recommended. PE: There were no vitals taken for this visit. General: alert, healthy, and no distress Incision site: healing well and clean, dry and intact Assessment: Demetrius Guevara is doing well. All questions answered. Plan: follow - up PRN Jon Saravia MD documented in this encounter Nursing Notes * Laurence Katz LPN - 04/06/2024 3:37 PM EDT Patient identified by name and date of . Chief Complaint Patient presents with Follow Up Post-Op Lap IHR on 02/21/2024 documented in this encounter Plan of Treatment Upcoming Encounters Date Type Department Care Team (Late st Contact Info) Description 05/26/2024 2:00 PM EST Office Visit Family Practice [address] [place] [address] [place] [address] Julian Gray DO [address] [facility] [place] [address] Health Maintenance Due Date Last Done Comments [...] this encounter Medical Devices Implanted Type Area Windows Application Packager Device Identifier Shelf Expiration Date Model / Serial / Lot Mesh 13x9cm Monofilament Hernia Anatomical Medium Right Preshaped With Marking Polypropylene Dextile - [id number] Implanted:Qty: 1 on 02/21/2024 by Jon Saravia MD at OR [facility] Right: Groin COVIDIEN 02/15/2028 [id number] / / [id number] documented as of this encounter Visit Diagnoses [...] Advance Directives occurred with: Patient Care Teams Monitor Car Operator Relationship Specialty Start Date End Date Julian Gray DO [address] [place] [address] PCP - General Internal Medicine 12/06/23 documented as of this encounter
--- OUTSIDE RECORDS SUMMARY | 2024-04-29 14:10 | External Medical Summary | Summary of Care ---
Author Name Unknown Organization [facility] Address [address] [place] [address] Phone [phone] Care Team Providers Care Storm Window Installer Name Role Phone Michael Gray DO Primary Care Provider [phone] Reason for Visit * Auth/Cert Specialty Diagnoses / Procedures Referred By Miki t Referred To Contact Diagnoses Right inguinal hernia Right inguinal hernia [K40.90] Procedures LAPAROSCOPY; REPAIR INITIAL INGUINAL HERNIA LAPAROSCOPIC REPAIR INGUINAL HERNIA INITIAL Jon Saravia MD [email or web address] [place] [address] Or [facility] [address] [place] [address] Referral ID Status Reason Start Date Expiration Date Visits Re quested Visits Authorized [id number] Encounter Details Date Type Department Care Team (Latest Contact Info) Description 02/21/2024 7:51 AM EDT - 02/21/2024 12:12 PM EDT Hospital Encounter OR [facility], Operating Room [facility] [address] [place] [id number] Jon Saravia MD [address] [place] [address] Discharge Disposition: Home - Self Care Allergies No known active allergiesdocumented as of this encounter (statuses as of 02/22/2024) Medications Medication Sig Dispensed Refills Start Date End Date Status DAILY VITAMIN FORMULA PO TABS one tablet daily Act norberto Benefiber Oral Powder Take by mouth 2 times a day with morning and evening meals . 1 tsp twice daily Active Triamcinolone Acetonide 0.1 % External Lotion (Aristocort)Indicat ions:Seborrheic dermatitis Apply to rash in nicole twice [...] 1 Capsule by mouth every morning. Active oxyCODONE-Acetamino phen 5-325 MG Oral Tablet (Percocet) Take 1 Tablet by mouth every 6 hours as needed for Pain, Moderate. 10 Tablet 02/21/2024 Active documented as of this encounter (statuses as of 02/22/2024) Active Problems Problem Noted Date Diagnosed Date Right inguinal hernia 12/10/2023 Pure hypercholesterolemia 12/05/2022 Chronic midline low back pain without sciatica 0 12/05/2022 Vegan diet 12/12/2021 documented as of this encounter (statuses as of 02/22/2024) Resolved Problems Problem Noted Date Diagnosed Date Resolved Date Brain fog 12/12/2021 10/18/2023 documented as of this encounter (statuses as of 02/22/2024) Immunizations Name Administration Dates Next Due COVID-19 mRNA, LNP-s, No Pre serve, 2-Dose Series ([employer]) 03/14/2021,08/30/2020,08/09/2020 COVID-19, MRNA-LNP, 23-24, P F, 50 [...] Sign Reading Time Taken Comments Blood Pressure 133/71 02/21/2024 12:10 PM EDT Pulse 58 02/21/2024 12:10 PM EDT Temperature 36.1 C (97 F) 02/21/2024 11:16 AM EDT Respiratory Rate 14 02/21/2024 12:10 PM EDT Oxygen Saturation 98% 02/21/2024 12:10 PM EDT Inhaled Oxygen Concentration - - Weight 60.3 kg (133 lb) 02/21/2024 8:17 AM EDT Height 170.8 cm (5' 7.25") 02/21/2024 8:17 AM ED T Body Mass Index 20.68 02/21/2024 8:17 AM EDT documented in this encounter Discharge Instructions * Discharge Instr - AVS* Jon Saravia MD - 02/21/2024 8:09 AM EDT Discharge Date: 02/21/2024 The information below provides you with the instructions and the list of medications you need to betaking following discharge from the hospital. If you have any questions, please ask before leaving.Please carry this letter with you when you see your doctor in the clinic. If you have questions, you can reach us at the numbers above. Post Anesthesia Instructions: 1. Do not drive today. 2. Resume driving when surgeon permits, in 3 day(s) as long as not taking narcotics. 3. Do not make important decisions or sign legal documents today. 4. Call surgeon for: Temperature evaluation greater than 101.5 degrees Uncontrollable pain Excessive Bleeding Persistent Nausea and vomiting Medication intolerance (nausea, vomiting, or rash) 5. For nausea and vomiting use only clear liquids such as: tea, soda, bouillon until nausea subsides, then gradually increase diet as tolerated. Don't take narcotics on empty stomach, this can cause worsening of your nausea. 6. If you have any concerns or questions, call your surgeon's office, . If the physician is unavailable and it is an emergency, call 911 or go to the nearest emergency room. Instructions for: Inguinal Hernia, Laparoscopic Hernia or Cholecystectomy, Umbilical or Ventral Hernia INCISION CARE: If present, remove any outer dressing(s) in 36 hours. The incision(s) may be sealed with sutures/ann marie, a skin adhesive (Dermabond), or covered with white adhesive tapes known as steri-strips. Either way there is no need to cover up the incisions again with gauze unless desired or there is drainage. TO PREVENT SWELLING: Swelling and bruising around incisions is common. If groin surgery was performed, the swelling and bruising can involve the scrotum and penis/labial area. Do not be alarmed. It will resolve on its own with time. Apply an ice pack to the incision (20 min on, 20 min off) for the first 24-48 hours to help with pain and swelling. SHOWER: You may shower 36 hours after surgery and get the incision(s) or steri-strips wet with soapy water and gently pat them dry. If the steri-strips come off in the shower, do not become concerned. If they are still in place 10 days after surgery, you may remove them. PAIN MEDICATION: You will usually be given a prescription for a narcotic pain medication (usually Vicodin or Percocet). Options for non-constipating pain medications include products that include ibuprofen or Tylenol. Avoid taking narcotic pain medication on an empty stomach as this makes more prone to nausea and vomiting, which is a side effect of these medications. BOWEL MEDICATION: To combat constipation, you may take over the counter laxatives, fiber therapy, or prune juice. Drink plenty of fluids. COMMON COMPLAINTS: Shoulder pain and gas pains from the carbon dioxide used during the procedure is common with laparoscopic preocedures. Your body absorbs this gas naturally over a 48-72 hour period. Tylenol (Acetaminophen) or Ibuprofen (Motrin) is usually sufficient to relieve this discomfort. If you have had a laparoscopic ventral hernia repair there will be a roll of gauze which should remain over your hernia site anchored with the abdominal binder. Try to keep this in place as much as possible before your first post-op clinic visit; you may take it off temporarily for baths or showers. URINATION: If you cannot urinate, sit in a warm bath then try again. Activity : Rest today. Do not do any heavy lifting (more than 20lbs pounds) or any vigorous exercise for 4 week(s). Return to School or Work: May return to work/school as tolerated on light duty; 4 week(s) to returnwithout restrictions. Diet: Resume previous diet Follow-up Visit with: When: in 2 weeks Discharged To: Home documented in this encounter Progress Notes * Jon Saravia MD - 02/21/2024 10:33 AM EDT [facility] [address] [address] OUTPATIENT SURGERY DISCHARGE SUMMARY NOTE Name: Demetrius Guevara Location: [place] [facility] Date: 02/21/2024 Time: 10:33 AM Surgery Date: 02/21/2024 Procedure: LAPAROSCOPIC REPAIR INGUINAL HERNIA INITIAL Right Surgeon: Jon Saravia MD Discharge Diagnosis: right inguinal hernia After examination of this patient, I have determined he is ready for discharge to home when the patient meets criteria. Discharge instructions were given to the patient. documented in this encounter H&P Notes * Jon Saravia MD - 02/21/2024 8:05 AM EDT No changes B CTA RRR : R IH Source Note - Jon Saravia MD - 01/22/2024 10:56 AM EDT CC- abdominal wall bulge Patient returns to schedule lap R IH; H&P remains as below: Ref: MICHAEL GRAY[[id number]] [phone] [place] [id number] (office) [phone] (fax) HPI.: Demetrius Guevara is a 73 year old male seen in consultation for a right inguinal hernia. They have had mild symptoms present for months duration. Their symptomsdid not start at work. The pain is dull and intermittent. Their lump is reducible. He has no Sxs of chronic constipation,chronic cough,difficulty urinating. Past Medical History Past Medical History: Diagnosis Date Brain fog 12/12/2021 Chronic midline low back pain without sciatica 12/05/2022 Hypercholesterolemia Vegan diet 12/12/2021 Past Surgical History Past Surgical History: Procedure Laterality Date CATARACT SURGERY,COMPLEX Bilateral 09/05/22 and 09/12/[address] Hanson DENTAL SURGERY PROCEDURE NEC INFORMATION 06/17/1973 ganglion cyst left wrist MISCELLANEOUS ORDER ([facility] ONLY) 06/17/2013 oral surgery REMOVE TONSILS & ADENOIDS, UNDER 12 age 5 Tonsillectomy/Adenoids,<11 Y/O REPAIR INITIAL INGUINAL HERNIA REDUCIBLE AGE 4 OR MORE Left 06/17/19731973 left inguianl hernia repair VASECTOMY 06/17/1994 in the [place] area Medications: Current Outpatient Medications Medication Sig Dispense Refill DAILY VITAMIN FORMULA PO TABS one tablet daily Benefiber Oral Powder Take by mouth 2 times a day with morning and evening meals . 1 tsp twice daily Nutritional Supplement Plus Oral Liquid Take by mouth. Iron supplement I ferex Ketoconazole 2 % External Shampoo (Nizoral) Lather into scalp and nicole in shower, leave in for 5 minutes, then rinse. Do this three times per week 120 mL 11 Triamcinolone Acetonide 0.1 % External Lotion (Aristocort) Apply to rash in nicole twice daily for 10 days 60 mL 0 No current facility-administered medications for this visit. Allergies: Allergies as of 01/22/2024 (No Known Allergies) Family History Family History Problem Relation Name Age of Onset Dementia Mother Lung cancer Father Other (traumatic brain injury) Sister Heart attack Brother Colon cancer Grandmother (Maternal) Social History Social History Socioeconomic History Marital status: Spouse name: Not on file Number of children: Not on file Years of education: Not on file Highest education level: Not on file Occupational History Not on file Tobacco Use Smoking status: Never Passive exposure: Past Smokeless tobacco: Never Vaping Use Vaping status: Never Used Substance and Sexual Activity Alcohol use: Yes Comment: rare Drug use: Never Sexual activity: Yes Partners: Female Other Topics Concern Not on file Social History Narrative Not on file Social Determinants of Health Financial Resource Strain: Low Risk (06/24/2023) Financial Resource Strain Do you have any trouble paying for your medications, or do you think you might in the future? (Adult - for ages 18 years and over): No Does your family have trouble paying for medicine? (Household - for ages 0-17 years): Not on file Food Insecurity: No Food Insecurity (06/24/2023) Food Insecurity Do you need food for this week? (Adult - for ages 18 years and over): No Are you able to get enough food for your family? (Household - for ages 0-17 years): Not on file Does your family need food this week? (Household - for ages 0-17 years): Not on file Do you always have enough food for your family? (Household - for ages 0-17 years): Not on file Transportation Needs: No Transportation Needs (06/24/2023) Transportation Needs Do you have trouble getting a ride to medical visits or work? (Adult - for ages 18 years and over):Never True Does your family have a hard time getting a ride to doctors visits? (Household - for ages 0-17 years): Not on file Has lack of transportation kept you from medical appointments, meetings, work, or from getting things needed for daily living? Check all that apply. (Adult - for ages 18 years and over): Not on file Do you (or your family) have trouble finding or paying for a ride (transportation)? (Household - for ages 0-17 years): Not on file Social Connections: Socially Integrated (06/24/2023) Social Connections How often do you feel lonely or isolated from those around you? (Adult - for ages 18 years and over): Never Housing Stability: Low Risk (10/08/2023) Received from [facility], [facility] Housing Stability Unstable Housing in the Last Year: Not on file ROS: GEN: no weight loss, fever, fatigue HEENT: no changes in vision or hearing, no sinus problems, no sore throat, no hoarseness RESPIRATORY: no cough, wheezing, SOB or change in breathing CARDIOVASCULAR: no exertional chest pain, dyspnea, palpitations GI: no melena or hemetemesis, no change in bowel habits, no nausea or vomiting : no dysuria, hematuria, frequency MUSCULOSKELETAL: no change in joint pains, no new arthritis PSYCHIATRIC: no significant anxiety or depression, unchanged sleep pattern HEME: no bleeding tendency, no clotting tendency NEURO: no significant headache, no seizures , no tremors SKIN: no new rashes, no itching Physical Exam: There were no vitals taken for this visit. Constitutional: alert, healthy, well nourished Head: normocephalic, atraumatic Eyes: conjunctiva non-injected, sclera white Ears: pinna normal shape and color Nose: no purulent discharge Mouth: lips, mucosa, and tongue normal Neck: supple, no adenopathy Lungs: clear to auscultation, breath sounds are equal and symmetric Heart: regular rate & rhythm and no murmur, gallops or rubs Abdomen: soft, non-tender, normal bowel sounds, no hernias Back: normal curvature, normal ROM Extremities: no joint deformities, effusion, or inflammation, no edema, no skin discoloration Neuro: alert, gait normal, motor normal Skin: no obvious rashes or significant lesions Exam: no penile abnormality, no urethral discharge, no abnormalities of scrotal contents; reducible right inguinal hernia; left negative previously repaired Imaging: EXAM: US ABDOMEN LIMITED-10/21/2023 11:21 am HISTORY: right inguinal hernia. TECHNIQUE: Targeted ultrasound was performed of the right inguinal region. Images were obtained in area of concern as directed by the patient. COMPARISON: None FINDINGS: Fat containing right inguinal hernia. IMPRESSION IMPRESSION: Fat containing right inguinal hernia. IMP: Demetrius Guevara is a 73 year old male with a right inguinal hernia which is currently symptomatic. For this reason, I have recommended that the patient consider a hernia repair. This could be performed in open or laparoscopic approach. We reviewed that for hernias, laparascopic surgery is useful in bilateral, recurrent hernias, when associated with umbilical hernia, or where there is a benefit seen in shorter recovery time. Risks of laparascopic surgery including a slightly higher recurrence rate, slightly higher chance of nerve injury and possibility of injury to bowel or blood vessels were also discussed. I typically recommend an open procedure for initial inguinal hernias that would be difficult laparoscopically due to previous surgeries or when recovery time is not an issue. I discussed the surgery in detail and the complications related to the surgery and the anesthesia. Risks include, but are not limited to: recurrence of the hernia, persistent pain in the groin from injury to or entrapment of groin nerves, numbness, seroma formation, bleeding, infection, a significant risk of urinary retention in males with a bilateral repair and mesh infection requiring mesh removal. Patient understands these risks. Expected same day nature of surgery and postoperative recovery period reviewed. Activity restrictions postoperatively to include no heavy lifting or high impact activity for four to six weeks reviewed. All questions were answered to the patient's satisfaction and consent was signed. We also reviewed the signs and symptoms of incarceration and the patient was instructed to go directly to the emergency room should this occur. PLAN: Lap R IH with mesh. . documented in this encounter Nursing Notes * Oksana Mejia RN - 02/21/2024 12:12 PM EDT VSS. Reports pain at 3/10 on pain scale, tolerable. Denies nausea and tolerating PO intake. Dermabond sites dry and intact. Pt, , and son verbalized understanding of all discharge instructions. Patient stable for discharge home. Transported via wheelchair to private vehicle with staff presence to care of clamp truck driver. * Estefany Cortes RN - 02/21/2024 11:10 AM EDT Patient awake and oriented. Tolerating PO ice chips without nausea. Pain level is tolerable for patient 410. Vital signs stable. Ready for discharge from PACU 1. * Estefany Cortes RN - 02/21/2024 10:27 AM EDT Patient received to pacu 1 status post right lap inguinal hernia repair with mesh. Patient sleeping comfortably. No signs of pain. No signs of nausea. Respirations are even and unlabored on 6L O2 via mask. NSR on monitor. Abdomen soft and non distended. Dermabond to abdominal lap sites x3 is clean, dry and intact, ice pack applied. Vital signs stable. * Yue Reid RN - 02/21/2024 8:24 AM EDT Surgical consent verified with patient. Patient agrees with listed procedure and verified signature. documented in this encounter OR Notes * OR Surgeon - Jon Saravia MD - 02/21/2024 8:06 AM EDT Operative note Date of procedure: 02/21/2024 Pre-op diagnosis: right inguinal hernia Post-op diagnosis: same Procedure: Laparoscopic right inguinal hernia repair with mesh Surgeon: Jon Saravia MD Hat And Cap Drying Room Attendant: none Anesthesia: GETA w/marcaine EBL: 5 cc Drains: none Complications: none Specimens: none Findings: large indirect right inguinal hernia Indication for procedure: This patient presents with a symptomatic right inguinal hernia and they desire repair. They understand the risks of recurrence, nerve injury, chronic pain, loss of testicle,bowel or blood vessel injury, open procedure, and wound problems including infection and dehisence.Consent has been signed. The patient received 2 gm of ancef preoperatively. After induction of general endotracheal anesthesia, their abdomen and suprapubic areas were prepped and draped under sterile conditions. A transverse supraumbilical incision was made and a veress needle was then placed into the peritoneal cavity while applying upward traction on the abdominal wall with towel clamps. Once the needle was confirmed to be in the proper space insufflation was begun to achieve an intraabdominal pressure of 10-12mmHg.The veress needle was removed and a optically viewed blunt 12mm trocar and port was inserted directly viewing the layers of the abdominal wall and applying gentle upward traction with the towel clamps into the peritoneal cavity. A good diagnostic laparoscopic view was performed and the above findings were noted. A 11 mm port and trocar was placed in the patient's RLQ and a 5 mm port and trocar was then placed in the LLQ, both under direct visualization. A laparoscopic endoshears was used to open the peritoneum above the hernia from the medial umbilical ligament then laterally along the anterior abdominal wall. The inferior flap of the peritoneum was then dissected free of the spermatic cordtaking care to not injure its contents, this was opened medially to expose the pubic tubercle and laterally to facilitate easy placement of the mesh. Once the inferior flap was adequately mobilized the superior flap of peritoneum was likewise properly mobilized with both sharp and blunt dissection.The mesh was placed into the inguinal floor preperitoneally and secured with a multi-feed stapler, taking care not to place ann marie below the inguinal ligament laterally. The mesh was then re-peritonalized with stapler, no mesh was exposed. The ports were then removed and the pneumoperitoneum was de compressed. Vicryl sutures were then used to close the fascia, SQ, and skin. Dermabond was used to reinforce the closures. Sterile dressings were applied. The patient was awakened from anesthesia andtaken to recovery in stable condition. Jon Saravia MD 02/21/2024 10:18 AM documented in this encounter Plan of Treatment Upcoming Encounters Date Type Department Care Team (Late st Contact Info) Description 03/05/2024 10:45 AM EDT Office Visit General Surgery, [address] [place] [address] Jon Saravia MD [address] [place] [address] 05/26/2024 2:00 PM EST Office Visit Family Practice [address], [place] [address] [place] [id number] Michael Gray, [address] [place] [address] Health Maintenance Due Date Last Done Comments COVID-19 Vaccine (2022-24 season) 2024 03/26/2023, 11/06/2021, 03/14/2021, Additional history [...] this encounter Medical Devices Implanted Type Area Interior Design Faculty Member Device Identifier Shelf Expiration Date Model / Serial / Lot Mesh 13x9cm Monofilament Hernia Anatomical Medium Right Preshaped With Marking Polypropylene Dextile - [id number] Implanted:Qty: 1 on 02/21/2024 by Jon Saravia MD at OR [facility] Right: Groin ERNESTINA 02/15/2028 [id number] / / [id number] documented as of this encounter Visit Diagnoses Diagnosis Right inguinal hernia- Primary Inguinal hernia without mention of obstruction or gangrene, unilateral or unspecified, (not specified as recurrent) documented in this encounter Administered Medications Inactive Administered Medications - up to 3 most recent administrations Medication Order MAR Action Action Date Dose Rate Site Acetaminophen (Tylenol) tab 975 mg 975 mg, Oral, PREOP, First dose on Sat02/21/24 at 0845, Last dose on Sat02/21/24 at 0845, For 1 dose, Maximum 4 g acetaminophen/day. Avoid in patients with severe hepatic impairment or severe active liver disease. Administer 60 minutes prior to OR., Pre-Op Given 02/21/2024 8:20 AM EDT 975 mg ceFAZolin in dextrose (Ancef) ivpb 2 g 2 g, IV Piggyback, PREOP, 1 dose, First dose on Sat02/21/24 at 0845, Administer 60 minutes prior to skin incision, Pre-Op New Bag 02/21/2024 9:18 AM EDT 2 g 100 mL/hr chlorhexidine gluconate cloth 2 % pad 1 Pad 1 Pad, External, PREOP, First dose on Sat02/21/24 at 0845, Last dose on Sat02/21/24 at 0845, For 1 dose, Cleanse surgical site area immediately before transferring intra-op, Pre-Op Given 02/21/2024 8:24 AM EDT 1 Pad Abdomen Right Lower dexAMETHasone Sodium Phosphate (Decadron) 4 MG/ML inj 4 mg 4 mg, IV Push, PRN Nausea, Starting on Sat02/21/24 at 1029, Until Sat02/21/24 at 1617, For 1 dose, PROTECT FROM LIGHT, PACU fentaNYL (PF) inj 25 mcg 25 mcg, IV Push, PRN Pain, Severe, Starting on Sat02/21/24 at 1029, Until Sat02/21/24 at 1617, For 6 doses, When given IV Push its recommended that the dose be given over 3 to 5 minutes., PACU isolyte-S pH 7.4 infusion Intravenous, at 100 mL/hr, Plasma-LYTE 148, isolyte-S, and isolyte-S pH 7.4 are considered equivalent - including for MAR barcode scanning., CONTINUOUS, Starting on Sat02/21/24 at 0845, Until Sat02/21/24 at 1617, Pre-Op Continue from Pre-Op 02/21/2024 9:20 AM EDT 100 mL/hr New Bag 02/21/2024 8:27 AM EDT 100 mL/hr ondansetron (Zofran) inj 4 mg 4 mg, IV Push, PRN Nausea, Starting on Sat02/21/24 at 1029, Until Sat02/21/24 at 1617, For 1 dose, PACU oxyCODONE (Oxy IR) tab 5 mg 5 mg, Oral, ONCE, On Sat02/21/24 at 1200, For 1 dose, Post-op Given 02/21/2024 11:46 AM EDT 5 mg Povidone-Iodine nasal swab 4 Swab 4 Swab, Nasal, PREOP, First dose on Sat02/21/24 at 0845, Last dose on Sat02/21/24 at 0845, For 1 dose, Tilt the bottle slightly, dip one swab into solution and stir vigorously for 10 seconds. Withdraw the swab slowly to avoid wiping solution off during removal. Insert swab comfortably into one nostril and rotate for 15 seconds, covering all surfaces. Then focus on the inside tip of nostril and rotate for an additional 15 seconds. Using a new swab, Repeat above steps in the other nostril (Swab 2). Repeat the application in both nostrils using a fresh swab each times (Swab 3 and 4)., Pre-Op Given 02/21/2024 8:24 AM EDT 4 Swabs Other -Specify documented in this encounter Active and Recently Administered Medications Times are shown in EDT. Scheduled Medication Order 02/19/2024 02/20/2024 02/21/2024 Acetaminophen (Tylenol) tab 975 mg (COMPLETED) 975 mg, Oral, PREOP, First dose on Sat02/21/24 at 0845, Last dose on Sat02/21/24 at 0845, For 1 dose, Maximum 4 g acetaminophen/day. Avoid in patients with severe hepatic impairment or severe active liver disease. Administer 60 minutes prior to OR., Pre-Op 0820 (Given - Provid er: Yue Reid RN) ceFAZolin in dextrose (Ancef) ivpb 2 g (COMPLETED) 2 g, IV Piggyback, PREOP, 1 dose, First dose on Sat02/21/24 at 0845, Administer 60 minutes prior to skin incision, Pre-Op 09 (New Bag - Prov ider: Yue Reid RN) chlorhexidine gluconate cloth 2 % pad 1 Pad (COMPLETED) 1 Pad, External, PREOP, First dose on Sat02/21/24 at 0845, Last dose on Sat02/21/24 at 0845, For 1 dose, Cleanse surgical site area immediately before transferring intra-op, Pre-Op 08 (Given - Provid er: Yue Reid RN) oxyCODONE (Oxy IR) tab 5 mg (COMPLETED) 5 mg, Oral, ONCE, On Sat02/21/24 at 1200, For 1 dose, Post-op 1146 (Given - Provid er: Daniela Gordon RN) Povidone-Iodine nasal swab 4 Swab (COMPLETED) 4 Swab, Nasal, PREOP, First dose on Sat02/21/24 at 0845, Last dose on Sat02/21/24 at 0845, For 1 dose, Tilt the bottle slightly, dip one swab into solution and stir vigorously for 10 seconds. Withdraw the swab slowly to avoid wiping solution off during removal. Insert swab comfortably into one nostril and rotate for 15 seconds, covering all surfaces. Then focus on the inside tip of nostril and rotate for an additional 15 seconds. Using a new swab, Repeat above steps in the other nostril (Swab 2). Repeat the application in both nostrils using a fresh swab each times (Swab 3 and 4)., Pre-Op 823 (Given - Provid er: Yue Reid RN - Comment: nasal) Continuous Medication Order 02/19/2024 02/20/2024 02/21/2024 isolyte-S pH 7.4 infusion Intravenous, at 100 mL/hr, Plasma-LYTE 148, isolyte-S, and isolyte-S pH 7.4 are considered equivalent - including for MAR barcode scanning., CONTINUOUS, Starting on Sat02/21/24 at 0845, Until Sat02/21/24 at 1617, Pre-Op 08 (New Bag - Prov ider: Yue Reid RN)0911 (Continue from Pre-Op - Provider: Dilan Jones CRNA) PRN Medication Order 02/19/2024 02/20/2024 02/21/2024 BUPivacaine-EPINEPHrine (Sensorcaine W/ Epi) 0.5%-1:914929 inj (CANCELED) ONCE PRN INTRA PROCEDURE, Starting on Sat02/21/24 at 0944, Until Sat02/21/24 at 1007, Intra-Op 0944 (Given - Provid er: Jon Saravia MD - Comment: abdominal port sites x3) dexAMETHasone Sodium Phosphate (Decadron) 4 MG/ML inj 4 mg 4 mg, IV Push, PRN Nausea, Starting on Sat02/21/24 at 1029, Until Sat02/21/24 at 1617, For 1 dose, PROTECT FROM LIGHT, PACU fentaNYL (PF) inj 25 mcg 25 mcg, IV Push, PRN Pain, Severe, Starting on Sat02/21/24 at 1029, Until Sat02/21/24 at 1617, For 6 doses, When given IV Push its recommended that the dose be given over 3 to 5 minutes., PACU ondansetron (Zofran) inj 4 mg 4 mg, IV Push, PRN Nausea, Starting on Sat02/21/24 at 1029, Until Sat02/21/24 at 1617, For 1 dose, PACU documented in this encounter Advance Directives * [...] Advance Directives occurred with: Patient Care Teams Storm Window Installer Relationship Specialty Start Date End Date Michael Gray DO [address] [place] [address] PCP - General Internal Medicine 12/06/23 documented as of this encounter
--- OUTSIDE RECORDS SUMMARY | 2024-04-29 14:10 | External Medical Summary | Summary of Care ---
Author Name Unknown Organization [facility] Address [address] [place] [address] Phone [phone] Care Team Providers Care Scientific Programmer Name Role Phone Michael Gray DO Primary Care Provider [phone] Reason for Visit * Reason Comments Follow Up Right inguinal herni a Encounter Details Date Type Department Care Team (Late st Contact Info) Description 01/22/2024 10:45 AM EDT Office Visit General Surgery, [facility] [address] [place] [address] Jon Saravia MD [address] [place] [address] Right inguinal hernia*; Pre-op examination Allergies No known active allergiesdocumented as of this encounter (statuses as of 01/22/2024) Medications Medication Sig Dispensed Refills Start Date [...] for 10 days 60 mL 08/26/2023 Active Nutritional Supplement Plus Oral Liquid Take by mouth. Iron supplement I ferex Active Ketoconazole 2 % External Shampoo (Nizoral) Lather into scalp and nicole in shower, leave in for 5 minutes, then rinse. Do this three times per week 120 mL 11 12/12/2023 Active documented as of this encounter (statuses as of 01/22/2024) Active Problems Problem Noted Date Diagnosed Date Right inguinal hernia 12/10/2023 Pure hypercholesterolemia 12/05/2022 Chronic midline low back pain without sciatica 0 12/05/2022 Vegan diet 12/12/2021 documented as of this encounter (statuses as of 01/22/2024) Resolved Problems Problem Noted Date Diagnosed Date Resolved Date Brain fog 12/12/2021 10/18/2023 documented as of this encounter (statuses as of 01/22/2024) Immunizations Name Administration Dates Next Due COVID-19 mRNA, LNP-s, No Pre serve, 2-Dose Series ([employer]) 03/14/2021,08/30/2020,08/09/2020 COVID-19, MRNA-LNP, 23-24, P F, 50 MCG/0.5 mL, 12 YRS AND ABOVE, IM (MODERNA-Spikevax) 03/26/2023 COVID-19, mRNA, LNP-s, PF, B ooster, 100mcg/0.5mg (Moderna) 11/06/2021 Pneumococcal Conjugate Vacc, 13 Valent (Prevnar) 04/04/2015 Pneumococcal Polysaccharide PPV23 (Pneumovax) 05/18/2022,07/06/2012 Seasonal Influenza, Quadriva lent Hd (Fluzone Hd) 03/26/2023 Seasonal Influenza, Quadriva lent Hd, 65+ Yrs 02/27/2022 Seasonal Influenza, Recombin ant, RIV4, PF, (Flublock) 03/18/2020 Seasonal Influenza, Trivalen t, High Dose, No Preserve, IM 04/29/2019 TDAP, Age 7 and older, IM (Adacel) [...] on file Are you (or your family) connei eless or worried that you might be [...] Progress Notes * Jon Saravia MD - 01/22/2024 10:41 AM EDT CC- abdominal wall bulge Patient returns to schedule lap R IH; H&P remains as below: Ref: MICHAEL GRAY[[id number]] [address] [place] [address] (office) [phone] (fax) HPI.: Demetrius Guevara is a 73 [...] 06/17/1973 ganglion cyst left wrist MISCELLANEOUS ORDER ([facility] ONLY) 06/17/2013 oral surgery REMOVE TONSILS & ADENOIDS, UNDER 12 age 6 Tonsillectomy/Adenoids,<12 Y/O REPAIR INITIAL INGUINAL HERNIA REDUCIBLE AGE 5 OR MORE Left 06/17/19731973 left inguianl hernia repair VASECTOMY 06/17/1994 in the [place] area Medications: Current Outpatient Medications Medication Sig [...] Housing Stability: Low Risk (10/08/2023) [facility] Housing Stability Unstable Housing in the Last [...] with mesh. . documented in this encounter H&P Notes * Jon Saravia MD - 01/22/2024 10:56 AM EDT CC- abdominal wall bulge Patient returns to schedule lap R IH; H&P remains as below: Ref: MICHAEL GRAY[[id number]] [address] [place] [address] (office) [phone] (fax) HPI.: Demetrius Guevara is a 73 [...] 06/17/1973 ganglion cyst left wrist MISCELLANEOUS ORDER ([facility] ONLY) 06/17/2013 oral surgery REMOVE TONSILS & ADENOIDS, UNDER 12 age 6 Tonsillectomy/Adenoids,<12 Y/O REPAIR INITIAL INGUINAL HERNIA REDUCIBLE AGE 5 OR MORE Left 06/17/19731973 left inguianl hernia repair VASECTOMY 06/17/1994 in the [facility] Medications: Current Outpatient Medications Medication Sig Dispense [...] Housing Stability: Low Risk (10/08/2023) Received from [facility], [facility] Housing Stability Unstable Housing in the Last [...] documented in this encounter Nursing Notes * Julita Jean LPN - 01/22/2024 11:28 AM EDT [facility] Inguinal Hernia Pre-op Education Patient was seen in clinic 01/22/2024 for [facility] Inguinal Hernia preoperative education. Patient was provided with the [facility] bag with supplies needed for preoperative preparation for surgery and educated per instructions on sheet. Patient was instructed to begin preparation on 01/22/2024. The following was provided to the patient: Patient Instruction Sheet HELP Card Chlorhexidine Soap Preventing Adverse Events During Surgery Pamphlet Help Prevent Skin Infections After Surgery Patient Education Included: Boost Breeze: Patient should drink at 10:00 pm the evening before surgery and 3 hours before arrival time to the hospital on the day of their surgery. Patient has been instructed not to eat or drink anything other than Boost Breeze after midnight thenight before surgery. Antibacterial soap or wipes: Provided and instructed to use evening prior and morning of surgery. The leave the soap on skin for 2 minutes and to not apply any lotions, creams, powders or deodorant after showering. Reviewed deep breathing and coughing exercises. Smoking cessation education not applicable. . Preop testing reviewed with patient by provider (see screening labs and procedures ordered prior tosurgery). Ambulation requirements prior to surgery: Encouraged to walk twice a day for at least 10 minutes. Postoperative activity restrictions: No lifting, pushing or pulling greater than 10 pounds for minimum of 6 weeks post-op. Discharge Needs Assessment: Not applicable. Patient has been or will be instructed by the preadmisison testing nurse on which medications should be held prior to surgery. [facility] written instructions were provided to patient along with contact information for nurse and clinic. Patient encouraged to contact nurse with any questions or concerns. Patient verbalized understanding. * Juilta Jean LPN - 01/22/2024 10:35 AM EDT Chief Complaint Patient presents with Follow Up Right inguinal hernia Patient is not having pain or any problems, he can just see the lump. He's here to talk about surgery. documented in this encounter Plan of Treatment Upcoming Encounters Date Type Department Care Team (Late st Contact Info) Description 02/21/2024 Hospital Encounter OR [facility], Operating Room [facility] [address] [place] [phone] Jon Saravia MD [address] [place] [address] 03/05/2024 10:45 AM EDT Office Visit General Surgery, [facility] [address] [place] [address] Jon Saravia MD [address] [place] [address] 05/26/2024 2:00 PM EST Office Visit Family Practice [address] [place] [address] [address] [place] [address] Michael Gray DO [address] [place] [address] Scheduled Orders Name Type Priority Associated Diagnoses Orde r Schedule EKG EKG Routine Pre-op examination Expected: 01/22/2024 (Approximate), Expi res: 02/21/2025 Scheduled Procedures Name Priority Associated Diagnoses Date/Ti me LAPAROSCOPIC REPAIR INGUINAL HERNIA INITIAL Right inguinal hernia Health Maintenance Due Date Last Done Comments Cologuard 1994 Fecal Occult Blood Test 1994 Sigmoidoscopy 1994 COVID-19 Vaccine ( season) 2023 03/26/2023, 11/06/2021, 03/14/2021, Additional history exists Influenza Vaccine (FLU shot) (#1) 2024 03/26/2023, 02/27/2022, 03/18/2020, Additional history exists Adult Wellness Visit 05/15/2024 05/15/2023, 05/18/20 22 Depression Screening 06/24/2024 06/24/2023 Colonoscopy 08/09/2024 08/09/2021, 07/19, 08/09/2021, Additional history exists Colorectal Cancer Screening 08/09/2024 DTaP,Tdap,and Td Vaccines (3 - Td or Tdap) 05/26/2028 05/26/2018, 02/12/2008 Lipid Panel 12/11/2028 12/12/2023, 11/16, 06/06/2022, Additional history exists Pneumococcal Vaccine: 65+ Years Completed 05/18/2022, 04/04/2015, [...] documented as of this encounter Medical Devices Not on filedocumented as of this encounter Visit Diagnoses Diagnosis Right inguinal hernia- Primary Inguinal hernia without mention of obstruction or gangrene, unilateral or unspecified, (not specified as recurrent) Pre-op examination Preoperative examination, unspecified Right inguinal hernia- Primary Inguinal hernia without mention of obstruction or gangrene, unilateral or unspecified, (not specified as recurrent) documented in this encounter Care Teams Scientific Programmer Relationship Specialty Start Date End Date Michael Gray DO [address] [facility] [place] [facility] [address] PCP - General Internal Medicine 12/06/23 documented as of this encounter
--- OUTSIDE RECORDS SUMMARY | 2024-04-29 14:10 | External Medical Summary | Summary of Care ---
Author Name Unknown Organization [facility] Address [address] [place] [address] Phone [phone] Care Team Providers Care Cotton Chopper Name Role Phone Michael Gray DO Primary Care Provider [phone] Reason for Visit * Reason Comments Follow Up Right inguinal herni a Encounter Details Date Type Department Care Team (Late st Contact Info) Description 01/22/2024 10:45 AM EDT Office Visit General Surgery, [facility] [address] [place] [address] Jon Saravia MD [address] [place] [address] Right inguinal hernia*; Pre-op examination Allergies No [...] mRNA, LNP-s, No Pre serve, 2-Dose Series ([employer] 03/14/2021,08/30/2020,08/09/2020 COVID-19, MRNA-LNP, 23-24, P F, 49 [...] IH; H&P remains as below: Ref: MICHAEL GRAY[[id number]] [address] [place] [address] (office) [phone] (fax) HPI.: Demetrius Guevara is a 73 [...] 06/17/1973 ganglion cyst left wrist MISCELLANEOUS ORDER ([facility] [facility] ONLY) 06/17/2013 oral surgery REMOVE TONSILS & ADENOIDS, UNDER 12 age 6 Tonsillectomy/Adenoids,<12 Y/O REPAIR INITIAL INGUINAL HERNIA REDUCIBLE AGE 5 OR MORE Left 06/17/19731973 left inguianl hernia repair VASECTOMY 06/17/1994 in the [place] area Medications: Current Outpatient Medications Medication Sig [...] Housing Stability: Low Risk (10/08/2023) [facility] Housing Stability Unstable Housing in the [...] IH; H&P remains as below: Ref: MICHAEL GRAY[[id number]] [address] [place] [address] (office) [phone] (fax) HPI.: Demetrius Guevara is a 73 [...] 06/17/1973 ganglion cyst left wrist MISCELLANEOUS ORDER ([facility] ONLY) 06/17/2013 oral surgery REMOVE TONSILS & ADENOIDS, UNDER 12 age 6 Tonsillectomy/Adenoids,<12 Y/O REPAIR INITIAL INGUINAL HERNIA REDUCIBLE AGE 5 OR MORE Left 06/17/19731973 left inguianl hernia repair VASECTOMY 06/17/1994 in the [facility] Medications: Current Outpatient Medications Medication Sig Dispense [...] Housing Stability: Low Risk (10/08/2023) [facility] Housing Stability Unstable Housing in the [...] questions or concerns. Patient verbalized understanding. * Julita Jean LPN - 01/22/2024 10:35 AM EDT [...] 10:45 AM EDT Office Visit General [facility], [facility] [address] [facility] [address] Jon Saravia MD [address] [place] [address] 05/26/2024 2:00 PM EST Office Visit Family Practice [address] [place] [address] [address] [place] [address] Michael Gray, [address] [place] [address] Scheduled Orders Name Type Priority Associated Diagnoses [...] as recurrent) Pre-op examination Preoperative examination, unspecified documented in this encounter Care Teams Cotton Chopper Relationship Specialty Start Date End Date Michael Gray DO [address] [place] [address] PCP - General Internal Medicine 12/06/23 documented as of this encounter
--- OUTSIDE RECORDS SUMMARY | 2024-04-29 14:10 | External Medical Summary | Summary of Care ---
Author Name Unknown Organization [facility] Address [address] [place] [address] Phone [phone] Care Team Providers Care Parking Regulation Enforcement Officer Name Role Phone Julian Gray DO Primary Care Provider [phone] Reason for Visit * Reason Onset Date Comments Information 02/20/2024 Encounter Created in Error 02/20/2024 Encounter Details Date Type Department Care Team (Late st Contact Info) Description 02/20/2024 Telephone General Surgery, [facility] [address] [place] [address] [facility] [place] [address] Information; Encounter Created in Error Allergies No known active allergiesdocumented as of this encounter (statuses as of 02/20/2024) Medications Medication Sig Dispensed Refills Start Date [...] as of this encounter (statuses as of 02/20/2024) Active Problems Problem Noted Date Diagnosed Date Right inguinal hernia 12/10/2023 Pure hypercholesterolemia 12/05/2022 Chronic midline low back pain without sciatica 0 12/05/2022 Vegan diet 12/12/2021 documented as of this encounter (statuses as of 02/20/2024) Resolved Problems Problem Noted Date Diagnosed Date Resolved Date Brain fog 12/12/2021 10/18/2023 documented as of this encounter (statuses as of 02/20/2024) Immunizations Name Administration Dates Next Due COVID-19 mRNA, LNP-s, No Pre serve, 2-Dose Series ([employer]) 03/14/2021,08/30/2020,08/09/2020 COVID-19, MRNA-LNP, 23-24, P F, 50 [...] on file documented as of this encounter Plan of Treatment Upcoming Encounters Date Type Department Care Team (Latest Contact Info) Description 02/21/2024 8:58 AM EDT Hospital Encounter OR [facility], Operating Room [facility] [address] [place] [address] Jon Saravia MD [address] [place] [address] 02/21/2024 8:58 AM EDT - 02/21/2024 10:11 AM EDT Surgery OR [facility], Operating Room [facility] [address] [place] [address] Jon Saravia MD [address] [place] [address] LAPAROSCOPIC REPAIR INGUINAL HERNIA INITIAL 03/05/2024 10:45 AM EDT Office Visit General Surgery, [facility] [address] [place] [address] Jon Saravia MD [address] [place] [address] 05/26/2024 2:00 PM EST Office Visit Family Practice [address] [place] [address] [address] [place] [address] Julian Gray DO [address] [place] [address] Scheduled Procedures Name Priority Associated Diagnoses Date/Ti me LAPAROSCOPIC REPAIR INGUINAL HERNIA INITIAL Right inguinal hernia 02/21/2024 8:58 AM EDT Health Maintenance Due Date Last Done Comments [...] Not on filedocumented as of this encounter Care Teams Parking Regulation Enforcement Officer Relationship Specialty Start Date End Date Julian Gray DO [address] [facility] [place] [address] PCP - General Internal Medicine 12/06/23 documented as of this encounter
--- OUTSIDE RECORDS SUMMARY | 2024-04-29 14:10 | External Medical Summary | Summary of Care ---
Author Name Unknown Organization [facility] Address [address] [place] [address] Phone [phone] Care Team Providers Care Deflector Operator Name Role Phone Julian Gray DO Primary Care Provider [phone] Reason for Visit * Reason Onset Date Comments Follow Up 02/24/2024 Encounter Details Date Type Department Care Team (Late st Contact Info) Description 02/24/2024 9:30 AM EDT Scheduled Telephone General Surgery, [facility] [address] [place] [address] [facility] [address] [place] [address] Arrived Allergies No known active allergiesdocumented as of this encounter (statuses as of 02/24/2024) Medications Medication Sig Dispensed Refills Start Date [...] as of this encounter (statuses as of 02/24/2024) Active Problems Problem Noted Date Diagnosed Date Right inguinal hernia 12/10/2023 Pure hypercholesterolemia 12/05/2022 Chronic midline low back pain without sciatica 0 12/05/2022 Vegan diet 12/12/2021 documented as of this encounter (statuses as of 02/24/2024) Resolved Problems Problem Noted Date Diagnosed Date Resolved Date Brain fog 12/12/2021 10/18/2023 documented as of this encounter (statuses as of 02/24/2024) Immunizations Name Administration Dates Next Due COVID-19 mRNA, LNP-s, No Pre serve, 2-Dose Series ([employer]) 03/14/2021,08/30/2020,08/09/2020 COVID-19, MRNA-LNP, 23-24, P F, 49 [...] on file documented as of this encounter Miscellaneous Notes * Telephone Encounter - Julita Jean LPN - 02/24/2024 8:07 AM EDT PATIENT IS S/p right inguinal hernia on 02/21/[address] Jon Saravia Pain Level- 1 Meds being taken for pain- no Are pain meds effective- n/a Incision sites- bruised Does the patient have a drain- no Does the patient have dressings? Are they aware of dressing instructions- yes Appetite- not so good Nausea/vomiting- not good Bowel movement- none, prune juice, stool softener. Suggested miralax Activity- walking Complying with activity restrictions- yes Coughing and deep breathing- no but told of importance Questions or concerns- lives [place] block away from grocery store, grocery store but did not jog that, that is alright, is drinking more than 60 ozs of water. Post operative follow up scheduled for 03/05/2024 documented in this encounter Plan of Treatment Upcoming Encounters Date Type Department Care Team (Late st Contact Info) Description 03/05/2024 10:45 AM EDT Office Visit General Surgery, [facility] [address] [place] [address] Jon Saravia MD [address] [place] [address] 05/26/2024 2:00 PM EST Office Visit Family Practice [address] [place] [address] [address] [facility] [place] [address] Julian Gray, [address] [place] [address] Health Maintenance Due Date Last Done Comments [...] this encounter Medical Devices Implanted Type Area Dry Janitor Device Identifier Shelf Expiration Date Model / Serial / Lot Mesh 13x9cm Monofilament Hernia Anatomical Medium Right Preshaped With Marking Polypropylene Dextile - [id number] Implanted:Qty: 1 on 02/21/2024 by Jon Saravia MD at OR [facility] Right: Groin COVIDIEN 02/15/2028 [id number] / / [id number] documented as of this encounter Advance Directives * Full Code [...] Advance Directives occurred with: Patient Care Teams Deflector Operator Relationship Specialty Start Date End Date Julian Gray DO [address] [place] [address] PCP - General Internal Medicine 12/06/23 documented as of this encounter
--- OUTSIDE RECORDS SUMMARY | 2024-04-29 14:10 | External Medical Summary | Summary of Care ---
Author Name Unknown Organization [facility] Address [address] [place] [address] Phone [phone] Care Team Providers Care Oil Burner Servicer And Installer Name Role Phone Michael Gray DO Primary Care Provider [phone] Reason for Visit * Reason Comments Follow Up Right inguinal herni a Encounter Details Date Type Department Care Team (Late st Contact Info) Description 01/22/2024 10:45 AM EDT Office Visit General Surgery, [facility] [address] [place] [address] Jon Saravia MD [address] [place] [address] Right inguinal hernia*; Pre-op examination Allergies No known active allergiesdocumented as of this encounter (statuses as of 01/23/2024) Medications Medication Sig Dispensed Refills Start Date [...] as of this encounter (statuses as of 01/23/2024) Active Problems Problem Noted Date Diagnosed Date Right inguinal hernia 12/10/2023 Pure hypercholesterolemia 12/05/2022 Chronic midline low back pain without sciatica 0 12/05/2022 Vegan diet 12/12/2021 documented as of this encounter (statuses as of 01/23/2024) Resolved Problems Problem Noted Date Diagnosed Date Resolved Date Brain fog 12/12/2021 10/18/2023 documented as of this encounter (statuses as of 01/23/2024) Immunizations Name Administration Dates Next Due COVID-19 mRNA, LNP-s, No Pre serve, 2-Dose Series ([employer]) 03/14/2021,08/30/2020,08/09/2020 COVID-19, MRNA-LNP, 23-24, P F, 49 [...] IH; H&P remains as below: Ref: MICHAEL GRAY[[id number]] [address] [place] [address] (office) [phone] (fax) HPI.: Demetrius Guevara is a 73 [...] 06/17/1973 ganglion cyst left wrist MISCELLANEOUS ORDER ([facility] ONLY) 06/17/2013 oral surgery REMOVE TONSILS & ADENOIDS, UNDER 12 age 5 Tonsillectomy/Adenoids,<12 Y/O REPAIR INITIAL INGUINAL HERNIA REDUCIBLE AGE 5 OR MORE Left 06/17/19731973 left inguianl hernia repair VASECTOMY 06/17/1994 in the [place] area Medications: Current Outpatient Medications Medication Sig [...] Housing Stability: Low Risk (10/08/2023) [facility] Housing Stability Unstable Housing in the [...] IH; H&P remains as below: Ref: MICHAEL GRAY[[id number]] [address] [place] [address] (office) [phone] (fax) HPI.: Demetrius Guevara is a 73 [...] 06/17/1973 ganglion cyst left wrist MISCELLANEOUS ORDER ([facility] ONLY) 06/17/2013 oral surgery REMOVE TONSILS & ADENOIDS, UNDER 12 age 5 Tonsillectomy/Adenoids,<12 Y/O REPAIR INITIAL INGUINAL HERNIA REDUCIBLE AGE 5 OR MORE Left 06/17/19731973 left inguianl hernia repair VASECTOMY 06/17/1994 in the [facility] Medications: Current Outpatient Medications Medication Sig Dispense [...] Housing Stability: Low Risk (10/08/2023) [facility] Housing Stability Unstable Housing in the [...] Care Team (Latest Contact Info) Description 02/21/2024 7:45 AM EDT Hospital Encounter OR [facility], Operating Room [facility] [address] [place] [address] Jon Saravia MD [address] [place] [address] 02/21/2024 7:45 AM EDT - 02/21/2024 8:58 AM EDT Surgery OR [facility], Operating Room [facility] [address] [place] [address] Jon Saravia MD [address] [place] [address] LAPAROSCOPIC REPAIR INGUINAL HERNIA INITIAL 03/05/2024 10:45 AM EDT Office Visit General Surgery, [facility] [address] [place] [address] Jon Saravia MD [address] [place] [address] 05/26/2024 2:00 PM EST Office Visit Family Practice [address] [place] [address] [place] [address] Michael Gray DO 293 [facility] [place] [address] Scheduled Procedures Name Priority Associated Diagnoses Date/Ti me LAPAROSCOPIC REPAIR INGUINAL HERNIA INITIAL Right inguinal hernia 02/21/2024 7:45 AM EDT Health Maintenance Due Date Last Done Comments Cologuard 1994 Fecal Occult Blood Test 1994 Sigmoidoscopy 1994 COVID-19 Vaccine ( season) 2023 03/26/2023, 11/06/2021, 03/14/2021, Additional history exists Influenza Vaccine (FLU shot) (#1) 2024 03/26/2023, 02/27/2022, 03/18/2020, Additional history exists Adult Wellness Visit 05/15/2024 05/15/2023, 05/18/20 Depression Screening 06/24/2024 06/24/2023 Colonoscopy 08/09/2024 08/09/2021, [...] Not on filedocumented as of this encounter Results * EKG (01/22/2024 11:10 AM EDT) 01/22/2024 11:1 0 AM EDT Narrative Procedure Note Jerzy Tavarez MD - 01/22/2024 11:10 AM EDT REASON FOR STUDY: pre op;pre op CONCLUSIONS: Sinus bradycardia Possible Left atrial enlargement Septal infarct , age undetermined Abnormal ECG No previous ECGs available Ventricular Rate: 48 Atrial Rate: 48 AK Interval: 186 QRS Duration: 86 QT/QTc: 444/396 ms P-R-T [place]: 74 : 44 : 72 degrees Jon Saravia MD EKG [facility] documented in this encounter Visit Diagnoses Diagnosis Right inguinal hernia- Primary Inguinal hernia without mention of obstruction or gangrene, unilateral or unspecified, (not specified as recurrent) Pre-op examination Preoperative examination, unspecified Pre-op examination Preoperative examination, unspecified Right inguinal hernia- Primary Inguinal hernia without mention of obstruction or gangrene, unilateral or unspecified, (not specified as recurrent) Right inguinal hernia Inguinal hernia without mention of obstruction or gangrene, unilateral or unspecified, (not specified as recurrent) documented in this encounter Care Teams Oil Burner Servicer And Installer Relationship Specialty Start Date End Date Michael Gray DO [address] [place] [address] PCP - General Internal Medicine 12/06/23 documented as of this encounter
--- OUTSIDE RECORDS SUMMARY | 2024-04-29 14:11 | External Medical Summary ---
Author Name Unknown Address Unknown Organization [id number]:[facility] [place] [address] [place] [address] Laboratory Report Ordering Provider Test Date Status JEFFREY RODRIGUEZ 12/17/2023 11:42:10 Final Observation Date Value Abnormality Reference (Units ) Status Parathyrin.intact [Mass/volume] in Serum or Plasma 12/17/2023 11:42:10 89 Above high normal 15-65 (pg/mL) Final Performing Location [facility] [place] [address] [place] [address]
--- OUTSIDE RECORDS SUMMARY | 2024-04-29 14:11 | External Medical Summary ---
Author Name Unknown Address Unknown Organization [id number][place] [place] [address] [facility] [id number] Laboratory Report Ordering Provider Test Date Status JEFFREY RODRIGUEZ 12/12/2023 14:19:21 Final Observation Date Value Abnormality Reference (Units ) Status SYNC LEUKOCYTES IN BLOOD BY AUTOMATED COUNT 12/12/2023 14:19:21 3.94 Below low normal 4.00-10.80 (K/uL) Final Segs 12/12/2023 14:19:21 56.6 40.0-75.0 (%) Final Lymphs % 12/12/2023 14:19:21 32.7 18.0-42.0 (%) Final Monos 12/12/2023 14:19:21 8.9 1.0-11.0 (%) Final Eosinophils 12/12/2023 14:19:21 1.0 0.0-6.0 (%) Final Basos 12/12/2023 14:19:21 0.5 0.0-2.0 (%) Final Immature Granulocyte, Percent 12/12/2023 14:19:21 0.3 0.0-2.0 (%) Final Absolute Segs 12/12/2023 14:19:21 2.23 1.80-7.70 (K/uL) Final Lymphs, absolute 12/12/2023 14:19:21 1.29 1.00-4.80 (K/ul) Final Monos, Abs 12/12/2023 14:19:21 0.35 0.00-1.10 (K/uL) Final Eos, Abs 12/12/2023 14:19:21 0.04 0.00-0.70 (K/uL) Final Basos, Abs 12/12/2023 14:19:21 0.02 0.00-0.20 (K/uL) Final Immature Granulocytes, Number 12/12/2023 14:19:21 0.01 0.00-0.20 (K/uL) Final Performing Location [facility] [place] [facility] [place] [address] [place] [address]
--- OUTSIDE RECORDS SUMMARY | 2024-04-29 14:11 | External Medical Summary | Summary of Care ---
Author Name Unknown Organization [facility] Address [address] [place] [address] Phone [phone] Care Team Providers Care Elevator Worker Name Role Phone Michael Gray DO Primary Care Provider [phone] Reason for Visit * Reason Comments Follow Up Right inguinal herni a Encounter Details Date Type Department Care Team (Late st Contact Info) Description 01/22/2024 10:45 AM EDT Office Visit General Surgery, [facility] [address] [place] [address] Jon Saravia MD [address] [place] [address] Right inguinal hernia*; Pre-op examination Allergies No [...] mRNA, LNP-s, No Pre serve, 2-Dose Series ([employer]) 03/14/2021,08/30/2020,08/09/2020 COVID-19, MRNA-LNP, 23-24, P F, 49 [...] IH; H&P remains as below: Ref: MICHAEL GRAY[[id number]] [address] [place] [address] (office) [phone] (fax) HPI.: Demetrius Guevara is a 73 [...] 06/17/1973 ganglion cyst left wrist MISCELLANEOUS ORDER ([facility] ONLY) 06/17/2013 oral surgery REMOVE TONSILS & ADENOIDS, UNDER 12 age 5 Tonsillectomy/Adenoids,<12 Y/O REPAIR INITIAL INGUINAL HERNIA REDUCIBLE AGE 5 OR MORE Left 06/17/19731973 left inguianl hernia repair VASECTOMY 06/17/1994 in the [place] area Medications: Current Outpatient Medications Medication Sig [...] IH; H&P remains as below: Ref: MICHAEL GRAY[[id number]] [address] [place] [address] (office) [phone] (fax) HPI.: Demetrius Guevara is a 73 [...] 06/17/1973 ganglion cyst left wrist MISCELLANEOUS ORDER ([facility] ONLY) 06/17/2013 oral surgery REMOVE TONSILS & ADENOIDS, UNDER 12 age 5 Tonsillectomy/Adenoids,<12 Y/O REPAIR INITIAL INGUINAL HERNIA REDUCIBLE AGE 5 OR MORE Left 06/17/19731973 left inguianl hernia repair VASECTOMY 06/17/1994 in the [facility] Medications: Current Outpatient Medications Medication Sig [...] Notes * Julita Jean LPN - 01/22/2024 10:35 [...] 10:45 AM EDT Office Visit General Surgery, [facility] [address] [place] [address] [facility] [address] [facility] [address] 05/26/2024 2:00 PM EST Office Visit Family Practice [address] [place] [address] [address] [place] [address] Michael Gray DO [address] [place] [address] Scheduled Orders Name Type Priority Associated Diagnoses [...] unspecified documented in this encounter Care Teams Elevator Worker Relationship Specialty Start Date End Date Michael Gray DO [address] [place] [address] PCP - General Internal Medicine 12/06/23 documented as of this encounter
--- OUTSIDE RECORDS SUMMARY | 2024-04-29 14:11 | External Medical Summary ---
Author Name Unknown Address Unknown Organization K01:[facility] [place] - [address] [place] [address] Laboratory Report Ordering Provider Test Date Status JEFFREY RODRIGUEZ 12/12/2023 14:19:21 Final Observation Date Value Abnormality Reference (Units ) Status WBC, Total 12/12/2023 14:19:21 3.94 Below low normal 4.00-10.80 (K/uL) Final RBC 12/12/2023 14:19:21 5.21 4.50-5.25 (M/uL) Final Hemoglobin 12/12/2023 14:19:21 15.7 14.0-16.8 (g/dL) Final HCT 12/12/2023 14:19:21 48.5 Above high normal 40.0-48.4 (%) Final MCV 12/12/2023 14:19:21 93.1 82.0-99.5 (fL) Final MCH 12/12/2023 14:19:21 30.1 27.0-34.0 (pg) Final MCHC 12/12/2023 14:19:21 32.4 32.0-36.0 (g/dL) Final RDW 12/12/2023 14:19:21 12.3 11.5-15.5 (%) Final Platelets 12/12/2023 14:19:21 121 Below low normal 140-400 (K/uL) Final MPV 12/12/2023 14:19:21 13.5 6.6-11.1 (fL) Final Nucleated erythrocytes/100 leukocytes [Ratio] in Blood by Automated count 12/12/2023 14:19:21 0 <=0 (/100 WBCs) Final Performing Location [facility] [place] - [address] [place] [address]
--- OUTSIDE RECORDS SUMMARY | 2024-04-29 14:11 | External Medical Summary | Summary of Care ---
Author Name Unknown Organization [facility] Address [address] [place] [address] Phone [phone] Care Team Providers Care Seat Builder Name Role Phone Julian Gray DO Primary Care Provider [phone] Reason for Visit * Reason Onset Date Comments Test Results 12/13/202312/12; 12/15 Encounter Details Date Type Department Care Team (Late st Contact Info) Description 12/13/2023 Telephone Family Practice [address] [facility] [place] [address] [place] [address] Julian Gray [address] [place] [address] Test Results (12/12; 12/15) Allergies No known active allergiesdocumented as of this encounter (statuses as of 12/18/2023) Medications Medication Sig Dispensed Refills Start Date [...] Active Additional Information Patient not taking.Reported on 09/07/2023 Nutritional Supplement Plus Oral Liquid Take by mouth. Iron supplement I ferex Active Ketoconazole 2 % External Shampoo (Nizoral) Lather into scalp and nicole in shower, leave in for 5 minutes, then rinse. Do this three times per week 120 mL 11 12/12/2023 Active documented as of this encounter (statuses as of 12/18/2023) Active Problems Problem Noted Date Diagnosed Date Right inguinal hernia 12/10/2023 Pure hypercholesterolemia 12/05/2022 Chronic midline low back pain without sciatica 0 12/05/2022 Vegan diet 12/12/2021 documented as of this encounter (statuses as of 12/18/2023) Resolved Problems Problem Noted Date Diagnosed Date Resolved Date Brain fog 12/12/2021 10/18/2023 documented as of this encounter (statuses as of 12/18/2023) Immunizations Name Administration Dates Next Due COVID-19 mRNA, LNP-s, No Pre serve, 2-Dose Series ([employer]) 03/14/2021,08/30/2020,08/09/2020 COVID-19, MRNA-LNP, 23-24, P F, 49 [...] as of this encounter Miscellaneous Notes * Addendum Note - Jada Kingsley LPN - 12/18/2023 3:39 PM EDTAddended by: JADA KINGSLEY on: 12/18/2023 03:39 PM Modules accepted: Orders * Telephone Encounter - Jada Kingsley LPN - 12/18/2023 3:38 PM EDT MyG message sent to patient. Pended BMP and PTH for 3 months. * Telephone Encounter - Yaneth Royal LPN - 12/16/2023 2:01 PM EDT Call placed to patient and relayed information from Dr. Gray. Pt acknowledged understanding. States he will try to get lab work completed tomorrow. * Telephone Encounter - Toyin Ayala LPN - 12/13/2023 1:42 PM EDT Called, left message for patient to return call. Will need to come in for non fasting additional labs. Thank you * Telephone Encounter - Toyin Ayala LPN - 12/13/2023 8:31 AM EDT Added labs to existing blood. Will await results to contact patient. Thank you * Telephone Encounter - Toyin Ayala LPN - 12/13/2023 8:29 AM EDT ----- Message from Julian Gray DO sent at 12/13/2023 8:05 AM EDT ----- Calcium is up Check Ionized calcium, Vitamin D and PTH documented in this encounter Plan of Treatment Upcoming Encounters Date Type Department Care Team (Late st Contact Info) Description 05/26/2024 2:00 PM EST Office Visit Family Practice [address] [place] [address] [place] [address] Julian Gray DO [address] [place] [address] Health Maintenance Due Date Last Done Comments Cologuard 1994 Fecal Occult Blood Test 1994 Sigmoidoscopy 1994 COVID-19 Vaccine ( season) 2023 03/26/2023, 11/06/2021, 03/14/2021, Additional history exists Influenza Vaccine (FLU shot) (#1) 2024 03/26/2023, 02/27/2022, 03/18/2020, Additional history exists Depression Screening 06/24/2024 06/24/2023 Colonoscopy 08/09/2024 08/09/2021, [...] Not on filedocumented as of this encounter Procedures Procedure Name Priority Date/Time Associated Diagnosis Comments PTH Routine 12/17/2023 11:42 AM EDT Serum calcium elevated CALCIUM, IONIZED Routine 12/17/2023 11:4 2 AM EDT Serum calcium elevated 25-HYDROXY VITAMIN D Routine 12/12/2023 2:19 PM EDT Serum calcium elevated documented in this encounter Results * (ABNORMAL) PTH (12/17/2023 11:42 AM EDT) PTH 89(H) 15 - 65 pg/mL 12/17/2023 11:45 PM EDT [facility] [place] Blood Venous blood specimen / Unknown Venipuncture / Unknown 12/17/2023 11:42 AM EDT 12/17/2023 11:42 AM EDT Julian Gray DO LAB BLOOD ORDERABLES Performing Organization Address City/[facility] Co de Phone Number LABORATORY [place] [address] [place] [address] * CALCIUM, IONIZED (12/17/2023 11:42 AM EDT) Calcium, Ionized 1.27 1.13 - 1.32 mmol/L 12/17/2023 10:28 PM EDT [facility] [place] Comment:This test was develo ped and its performance characteristics dtermined by [employer]. It has not been cleared or approved by the [place] Food and Drug Administration Blood Venous blood specimen / Unknown Venipuncture / Unknown 12/17/2023 11:42 AM EDT 12/17/2023 11:42 AM EDT Julian Gray DO LAB BLOOD ORDERABLES Performing Organization Address [facility] Co de Phone Number [facility] [place] [address] [place] [address] * 25-HYDROXY VITAMIN D (12/12/2023 2:19 PM EDT) 25-Hydroxy Vitamin D 36 >19 ng/mL 12/13/2023 10:02 AM EDT [facility] [place] Blood Venous blood specimen / Unknown Venipuncture / Unknown 12/12/2023 2:19 PM EDT 12/12/2023 2:19 PM EDT Narrative [facility] [place] - 12/13/2023 10:02 AM EDT Deficient: <20 ng/mL Insufficient: 20-29 ng/mL Recommended/Optimum:30-50 ng/mL Vitamin D intoxication is rare. If suspicious of Vitamin D toxicity, evaluation of serum Calcium and PTH is recommended. Julian Gray DO LAB BLOOD ORDERABLES [facility] [place] [address] [place] [address] documented in this encounter Visit Diagnoses Diagnosis Serum calcium elevated- Primary Hypercalcemia documented in this encounter Care Teams Seat Builder Relationship Specialty Start Date End Date Julian Gray DO [address] [place] [address] PCP - General Internal Medicine 12/06/23 documented as of this encounter
--- OUTSIDE RECORDS SUMMARY | 2024-04-29 14:11 | External Medical Summary | Summary of Care ---
Author Name Unknown Organization [facility] Address [address] [place] [address] Phone [phone] Care Team Providers Care Mechanic Helper Name Role Phone Michael Gray DO Primary Care Provider [phone] Reason for Visit * Reason Comments Follow Up Right inguinal herni a Encounter Details Date Type Department Care Team (Late st Contact Info) Description 01/22/2024 10:45 AM EDT Office Visit General Surgery, [facility] [address] [place] [address] Jon Saravia MD [address] [place] [address] Right inguinal hernia*; Pre-op examination Allergies No [...] mRNA, LNP-s, No Pre serve, 2-Dose Series ([employer]) 03/14/2021,08/30/2020,08/09/2020 COVID-19, MRNA-LNP, 23-24, P F, 49 [...] IH; H&P remains as below: Ref: MICHAEL GRAY[[id number]] [address] [place] [address] (office) [phone] (fax) HPI.: Demetrius Guevara is a 73 [...] 06/17/1973 ganglion cyst left wrist MISCELLANEOUS ORDER ([facility] ONLY) 06/17/2013 oral surgery REMOVE TONSILS & ADENOIDS, UNDER 12 age 5 Tonsillectomy/Adenoids,<12 Y/O REPAIR INITIAL INGUINAL HERNIA REDUCIBLE AGE 5 OR MORE Left 06/17/19731973 left inguianl hernia repair VASECTOMY 06/17/1994 in the [place] area Medications: Current Outpatient Medications Medication Sig [...] Housing Stability: Low Risk (10/08/2023) [facility] Housing Stability Unstable Housing in [...] IH; H&P remains as below: Ref: MICHAEL GRAY[[id number]] [address] [place] [address] (office) [phone] (fax) HPI.: Demetrius Guevara is a 73 [...] 06/17/1973 ganglion cyst left wrist MISCELLANEOUS ORDER ([facility] ONLY) 06/17/2013 oral surgery REMOVE TONSILS & ADENOIDS, UNDER 12 age 5 Tonsillectomy/Adenoids,<12 Y/O REPAIR INITIAL INGUINAL HERNIA REDUCIBLE AGE 5 OR MORE Left 06/17/19731973 left inguianl hernia repair VASECTOMY 06/17/1994 in the [facility] Medications: Current Outpatient Medications Medication [...] Housing Stability: Low Risk (10/08/2023) [facility] Housing Stability Unstable Housing in [...] EST Office Visit Family Practice [address], [place] [address] [place] [address] Michael Gray, DO [address] [place] [address] Scheduled Orders Name Type Priority Associated Diagnoses [...] unspecified documented in this encounter Care Teams Mechanic Helper Relationship Specialty Start Date End Date Michael Gray DO [address] [place] [address] PCP - General Internal Medicine 12/06/23 documented as of this encounter
--- OUTSIDE RECORDS SUMMARY | 2024-04-29 14:11 | External Medical Summary | Summary of Care ---
Author Name Unknown Organization [facility] Address [address] [place] [address] Phone [phone] Care Team Providers Care Activities Volunteer Name Role Phone Julian Gray DO Primary Care Provider [phone] Reason for Visit * Reason Onset Date Comments Test Results 12/13/202312/12; 12/15 Encounter Details Date Type Department Care Team (Late st Contact Info) Description 12/13/2023 Telephone Family Practice [address] [facility] [place] [address] [place] [phone] Julian Gray [address] [place] [address] Test Results (12/12; 12/15) Allergies No known active allergiesdocumented as of this encounter (statuses as of 12/16/2023) Medications Medication Sig Dispensed Refills Start Date [...] as of this encounter (statuses as of 12/16/2023) Active Problems Problem Noted Date Diagnosed Date Right inguinal hernia 12/10/2023 Pure hypercholesterolemia 12/05/2022 Chronic midline low back pain without sciatica 0 12/05/2022 Vegan diet 12/12/2021 documented as of this encounter (statuses as of 12/16/2023) Resolved Problems Problem Noted Date Diagnosed Date Resolved Date Brain fog 12/12/2021 10/18/2023 documented as of this encounter (statuses as of 12/16/2023) Immunizations Name Administration Dates Next Due COVID-19 mRNA, LNP-s, No Pre serve, 2-Dose Series ([employer]) 03/14/2021,08/30/2020,08/09/2020 COVID-19, MRNA-LNP, 23-24, P F, 49 [...] encounter Miscellaneous Notes * Telephone Encounter - Yaneth Royal LPN [...] PM EST Office Visit Family Practice [address] [facility] [place] [address] [place] [address] Julian Gray DO 293 [place] [address] Scheduled Orders Name Type Priority Associated Diagnoses Orde r Schedule CALCIUM, IONIZED Lab Routine Serum calcium elevated Ordered: 12/13/2023 PTH Lab Routine Serum calcium elevated Ordered: 12/13/2023 Health Maintenance Due Date Last Done Comments [...] 07/06/2012 Zoster Vaccines Completed 07/18/2022, 07/2021, 12/21/2014 GARDASIL-HPV IMMUNIZATION SERIES Aged Out No longer eligible based on patient's age to complete this topic Hepatitis B Aged Out No longer eligi ble based on patient's age to complete this topic MENINGOCOCCAL (MENACTRA/MENVEO) Aged Out No longer eligible based on patient's age to complete this topic documented as of this encounter Medical Devices Not on filedocumented as of this encounter Procedures Procedure Name Priority Date/Time Associated Diagnosis Comments 25-HYDROXY VITAMIN D Routine 12/12/2023 2:19 PM EDT Serum calcium elevated documented in this encounter Results * 25-HYDROXY VITAMIN D (12/12/2023 2:19 PM EDT) 25-Hydroxy Vitamin D 36 >19 ng/mL 12/13/2023 10:02 AM EDT [facility] [place] Venous blood specimen / Unknown Venipuncture / Unknown 12/12/2023 2:19 PM EDT 12/12/2023 2:19 PM EDT Narrative [facility] [place] 12/13/2023 10:02 AM EDT Deficient: <20 ng/mL Insufficient: 20-29 ng/mL Recommended/Optimum:30-50 ng/mL Vitamin D intoxication is rare. If suspicious of Vitamin D toxicity, evaluation of serum Calcium and PTH is recommended. Julian Gray DO LAB BLOOD ORDERABLES [facility] [place] [address] [place] [address] documented in this encounter Visit Diagnoses Diagnosis Serum calcium elevated- Primary Hypercalcemia documented in this encounter Care Teams Activities Volunteer Relationship Specialty Start Date End Date Julian Gray DO [address] [place] [address] PCP - General Internal Medicine 12/06/23 documented as of this encounter
--- OUTSIDE RECORDS SUMMARY | 2024-04-29 14:11 | External Medical Summary ---
Author Name Unknown Address Unknown Organization K01:LABORATORY [facility] [place] - [address] [facility] [address] Laboratory Report Ordering Provider Test Date Status JEFFREY RODRIGUEZ 12/12/2023 14:19:21 Final Observation Date Value Abnormality Reference (Units ) Status Triglyceride 12/12/2023 14:19:21 120 <=174 ( mg/dL) Final Triglyceride Reference Range s (mg/dL):
<150 Acceptable
150-174 Borderline high
175-499 High
>=500 Very high Cholesterol 12/12/2023 14:19:21 184 <200 (mg /dL) Final Total Cholesterol Reference Ranges (mg/dL):
<200 Desirable
200-239 Borderline high
>=240 High HDL 12/12/2023 14:19:21 42 >39 (mg/dL ) Final HDL Cholesterol Reference Ra nges (mg/dL):
>=60 High (Desirable)
<50 Low (Undesirable) For Females
<40 Low (Undesirable) For Males NON-HDL CHOLESTEROL 12/12/2023 14:19:21 142 <=159 (mg/dL) Final Non-HDL Cholesterol Referenc e Range (mg/dL):
<100 Target level for high risk ASCVD patient
<130 Optimal for general population
130-159 Near optimal for general population
160-189 Borderline High
190-219 High
>=220 Very High LDL, (calculated) 12/12/2023 14:19:21 118 <= 129 (mg/dL) Final LDL Cholesterol Reference Ra nges (mg/dL):
<70 Target level for high risk ASCVD patient
<100 Optimal for general population
100-129 Near optimal for general population
130-159 Borderline high
160-189 High
>=190 Very high Performing Location LABORATORY [facility] [place] - [address] [facility] [address]
--- OUTSIDE RECORDS SUMMARY | 2024-04-29 14:11 | External Medical Summary ---
Author Name Unknown Address Unknown Organization K01:[facility] [place] [address] [place] [address] Laboratory Report Ordering Provider Test Date Status MICHAELJEFFREY 12/12/2023 14:19:21 Final Deficient: <20 ng/mL
Ins ufficient: 20-29 ng/mL
Recommended/Optimum:30-50 ng/mL

Vitamin D intoxication is rare. If suspicious of Vitamin D toxicity, evaluation of serum Calcium and PTH is recommended. Observation Date Value Abnormality Reference (Units ) Status 25-OH Vitamin D total 12/12/2023 14:19:21 36 >19 (ng/mL) Final Performing Location [facility] [place] [address] [place] [address]
--- OUTSIDE RECORDS SUMMARY | 2024-04-29 14:11 | External Medical Summary | Summary of Care ---
Author Name Unknown Organization [facility] Address [address] [place] [address] Phone [phone] Care Team Providers Care Scheduling Analyst Name Role Phone Julian Gray DO Primary Care Provider [phone] Reason for Visit * Reason Comments Follow Up Encounter Details Date Type Department Care Team (Late st Contact Info) Description 12/10/2023 3:00 PM EDT Office Visit Family Practice [address], [place] [address] [place] [address] Julian Gray DO [address] [place] [address] Vegan diet*; Pure hypercholesterolemia; Chronic midline low back pain without sciatica; Right inguinal hernia Allergies No known active allergiesdocumented as of this encounter (statuses as of 12/10/2023) Medications Medication Sig Dispensed Refills Start Date [...] Additional Information Patient not taking.Reported on 09/07/2023 Ketoconazole 2 % External Shampoo (Nizoral) Lather into scalp and nicole in shower, leave in for 5 minutes, then rinse. Do this three times per week 120 mL 11 08/26/2023 Active Nutritional Supplement Plus Oral Liquid Take by mouth. Iron supplement I ferex Active documented as of this encounter (statuses as of 12/10/2023) Active Problems Problem Noted Date Diagnosed Date Right inguinal hernia 12/10/2023 Pure hypercholesterolemia 12/05/2022 Chronic midline low back pain without sciatica 0 12/05/2022 Vegan diet 12/12/2021 documented as of this encounter (statuses as of 12/10/2023) Resolved Problems Problem Noted Date Diagnosed Date Resolved Date Brain fog 12/12/2021 10/18/2023 documented as of this encounter (statuses as of 12/10/2023) Immunizations Name Administration Dates Next Due COVID-19 mRNA, LNP-s, No Pre serve, 2-Dose Series ([employer]) 03/14/2021,08/30/2020,08/09/2020 COVID-19, MRNA-LNP, 23-24, P F, 50 [...] Passive Smoke Exposure: Past Smokeless Tobacco: Never Tobacco Cessation:Counseling Given: Yes Alcohol Use Standard Drinks/Week Comments Yes 0 [...] Sign Reading Time Taken Comments Blood Pressure 110/78 12/10/2023 3:07 PM EDT Pulse 65 12/10/2023 3:07 PM EDT Temperature 36.2 C (97.2 F) 12/10/2023 3:07 PM ED T Respiratory Rate 16 12/10/2023 3:07 PM EDT Oxygen Saturation 97% 12/10/2023 3:07 PM EDT Inhaled Oxygen Concentration - - Weight 61.8 kg (136 lb 3.2 oz) 12/10/2023 3:07 P M EDT Height 170.8 cm (5' 7.25") 12/10/2023 3:07 PM ED T Body Mass Index 21.17 12/10/2023 3:07 PM EDT documented in this encounter Progress Notes * Julian Gray, DO - 12/10/2023 3:38 PM EDT SUBJECTIVE: Demetrius Guevara is a 73 year old male. Chief Complaint Patient presents with Follow Up HPI: Patient is a 73 year old male with a history of Hyperlipidemia, Lumbago, right Inguinal Hernia, andpost exercise brain fog that is seen for follow up. He continues to jog daily for exercise without difficulty. No chest pain or shortness of breath are present. Weight is stable and appetite is good.Right inguinal hernia has not gotten any larger and is not painful. The patient is planning to schedule with Surgery to discuss repair. Patient Active Problem List Diagnosis Vegan diet Pure hypercholesterolemia Chronic midline low back pain without sciatica Right inguinal hernia Current Outpatient Medications Medication Sig Dispense Refill DAILY VITAMIN FORMULA PO TABS one tablet daily Benefiber Oral Powder Take by mouth 2 times a day with morning and evening meals . 1 tsp twice daily Ketoconazole 2 % External Shampoo (Nizoral) Lather into scalp and nicole in shower, leave in for 5 minutes, then rinse. Do this three times per week 120 mL 11 Nutritional Supplement Plus Oral Liquid Take by mouth. Iron supplement I ferex Triamcinolone Acetonide 0.1 % External Lotion (Aristocort) Apply to rash in nicole twice daily for 10 days (Patient not taking: Reported on 09/07/2023) 60 mL 0 No current facility-administered medications for this visit. The patient's medication list was reviewed and updated as needed. Past Medical History: Diagnosis Date Brain fog 12/12/2021 Chronic midline low back pain without sciatica 12/05/2022 Hypercholesterolemia Vegan diet 12/12/2021 Past Surgical History: Procedure Laterality Date CATARACT SURGERY,COMPLEX Bilateral 09/05/22 and 09/12/[address] Hanson DENTAL SURGERY PROCEDURE NEC INFORMATION 06/17/1973 ganglion cyst left wrist MISCELLANEOUS ORDER ([facility] ONLY) 06/17/2013 oral surgery REMOVE TONSILS & ADENOIDS, UNDER 12 age 5 Tonsillectomy/Adenoids,<12 Y/O REPAIR INITIAL INGUINAL HERNIA REDUCIBLE AGE 4 OR MORE Left 06/17/19731973 left inguianl hernia repair VASECTOMY 06/17/1994 in [facility] Review of patient's allergies indicates: No Known Allergies Review of Systems Constitutional: Negative for appetite change, fatigue and unexpected weight change. Respiratory: Negative for cough, shortness of breath and wheezing. Cardiovascular: Negative for chest pain, palpitations and leg swelling. Gastrointestinal: Negative for abdominal pain, blood in stool, constipation, diarrhea, nausea and vomiting. Genitourinary: Negative for dysuria and hematuria. Musculoskeletal: Positive for back pain. Negative for gait problem. Neurological: Negative for dizziness, speech difficulty and headaches. Psychiatric/Behavioral: Negative for confusion, decreased concentration and sleep disturbance. OBJECTIVE: BP 110/78 (BP Site: Left Arm, BP Position: Sitting) | Pulse 65 | Temp 36.2 C (97.2 F) | Resp 16| Ht 1.708 m (5' 7.25") | Wt 61.8 kg (136 lb 3.2 oz) | SpO2 97% | BMI 21.17 kg/m | BSA 1.71 m Physical Exam Vitals and nursing note reviewed. Constitutional: General: He is not in acute distress. Appearance: Normal appearance. He is not toxic-appearing. HENT: Head: Normocephalic and atraumatic. Cardiovascular: Rate and Rhythm: Normal rate and regular rhythm. Heart sounds: Normal heart sounds. No murmur heard. No gallop. Pulmonary: Effort: Pulmonary effort is normal. Breath sounds: Normal breath sounds. No wheezing, rhonchi or rales. Abdominal: General: Bowel sounds are normal. There is no distension. Palpations: Abdomen is soft. Tenderness: There is no abdominal tenderness. Hernia: A hernia is present. Hernia is present in the right inguinal area. Musculoskeletal: Right lower leg: No edema. Left lower leg: No edema. Neurological: Mental Status: He is alert and oriented to person, place, and time. Mental status is at baseline. Motor: No weakness. Gait: Gait normal. Psychiatric: Mood and Affect: Mood normal. Behavior: Behavior normal. Thought Content: Thought content normal. PLAN AND ASSESSMENT: Vegan diet (Primary) CBC tomorrow Pure hypercholesterolemia LIPID PANEL, and CMP Chronic midline low back pain without sciatica Right inguinal hernia Follow Up: Return in about 6 months (around 06/10/2024), or if symptoms worsen or fail to improve. Julian Gray DO 3:38 PM 12/10/2023 documented in this encounter Nursing Notes * Malia Valdivia CCMA - 12/10/2023 3:02 PM EDT Pt here for follow up today. Pt still having issues with right wrist that he seen orthopedics for. States that he should schedule another appt with them to discuss issue. Would like to discuss cholesterol levels. Has some questions about a hernia that he has. States that he has shakiness when only when he writes. On going about 4 years. Has questions about his diet. Patient has been verbally educated on the need or importance of Immunizations: covid shot and has declined topic(s). documented in this encounter Plan of Treatment Upcoming Encounters Date Type Department Care Team (Late st Contact Info) Description 05/26/2024 2:00 PM EST Office Visit Family Practice [address], [place] [address] [place] [address] [facility] [address] Health Maintenance Due Date Last Done Comments Cologuard 1994 Fecal Occult Blood Test 1994 Sigmoidoscopy 1994 COVID-19 Vaccine ( season) 2023 03/26/2023, 11/06/2021, 03/14/2021, Additional history exists Postponed from 07/27/2023 (Patient Declined After Education) Depression Screening 06/24/2024 06/24/2023 Colonoscopy 08/09/2024 08/09/2021, 07/19, 08/09/2021, Additional history exists Colorectal Cancer Screening 08/09/2024 Lipid Panel 12/06/2027 12/05/2022, 05/18, 10/12/2021, Additional history exists DTaP,Tdap,and Td Vaccines (3 - Td or Tdap) 05/26/2028 05/26/2018, 02/12/2008 Pneumococcal Vaccine: 65+ Years Completed 05/18/2022, 04/04/2015, 07/06/2012 Zoster Vaccines Completed 07/18/2022, 07/2021, 12/21/2014 Influenza Vaccine (FLU shot) Completed 03/26/2023, 02/27/2022, 03/18/2020, Additional history exists GARDASIL-HPV IMMUNIZATION SERIES Aged Out No longer [...] as of this encounter Visit Diagnoses Diagnosis Vegan diet- Primary Pure hypercholesterolemia Chronic midline low back pain without sciatica Right inguinal hernia Inguinal hernia without mention of obstruction or gangrene, unilateral or unspecified, (not specified as recurrent) documented in this encounter Care Teams Scheduling Analyst Relationship Specialty Start Date End Date Julian Gray DO [address] [facility] [place] [address] PCP - General Internal Medicine 12/06/23 documented as of this encounter
--- OUTSIDE RECORDS SUMMARY | 2024-04-29 14:11 | External Medical Summary | Summary of Care ---
Author Name Unknown Organization [facility] Address [address] [place] [address] Phone [phone] Care Team Providers Care Reference Assistant Name Role Phone Julian Gray DO Primary Care Provider [phone] Reason for Visit * Reason Onset Date Comments Medication Refill 12/12/2023 Ketoconazole 2 % External Shampoo (Nizoral) Encounter Details Date Type Department Care Team (Late st Contact Info) Description 12/12/2023 Refill Dermatology [facility] [address] [place] [address] Héctor Parra MD [address] [place] [address] Allergies No known active allergiesdocumented as of this encounter (statuses as of 12/12/2023) Medications Medication Sig Dispensed Refills Start Date [...] per week 120 mL 11 12/12/2023 Active Ketoconazole 2 % External Shampoo (Nizoral) Lather into scalp and nicole in shower, leave in for 5 minutes, then rinse. Do this three times per week 120 mL 11 08/26/2023 12/12/2023 Discontinued (Refill) documented as of this encounter (statuses as of 12/12/2023) Active Problems Problem Noted Date Diagnosed Date Right inguinal hernia 12/10/2023 Pure hypercholesterolemia 12/05/2022 Chronic midline low back pain without sciatica 0 12/05/2022 Vegan diet 12/12/2021 documented as of this encounter (statuses as of 12/12/2023) Resolved Problems Problem Noted Date Diagnosed Date Resolved Date Brain fog 12/12/2021 10/18/2023 documented as of this encounter (statuses as of 12/12/2023) Immunizations Name Administration Dates Next Due COVID-19 mRNA, LNP-s, No Pre serve, 2-Dose Series ([employer]) 03/14/2021,08/30/2020,08/09/2020 COVID-19, MRNA-LNP, 23-24, P F, 50 [...] encounter Miscellaneous Notes * Telephone Encounter - Héctor Parra MD - 12/12/2023 4:06 PM EDT Signed Prescriptions: Disp Refills Ketoconazole 2 % External Shampoo (Nizoral)120 mL 11 Sig: Lather into scalp and nicole in shower, leave in for 5 minutes, then rinse. Do this three times per week Authorizing Provider: HÉCTOR PARRA * Telephone Encounter - Arcelia Silva OSA - 12/12/2023 1:38 PM EDT Pt's calling to ask to have rx refills sent in to different pharmacy as the one they had used is closed per pt. Last office visit was 08/26/[address] Parra Ketoconazole 2 % External Shampoo (Nizoral) [facility] [address] [facility] Thank you for your help! documented in this encounter Plan of Treatment Upcoming Encounters Date Type Department Care Team (Late st Contact Info) Description 05/26/2024 2:00 PM EST Office Visit Family Practice [address], [place] [address] [place] [phone] Julian Gray, DO [address] [place] [address] Health Maintenance Due Date Last Done Comments Cologuard 1994 Fecal Occult Blood Test 1994 Sigmoidoscopy 1994 COVID-19 Vaccine ( season) 2023 03/26/2023, 11/06/2021, 03/14/2021, Additional history exists Depression Screening 06/24/2024 06/24/2023 Colonoscopy 08/09/2024 08/09/2021, 07/19, 08/09/2021, Additional history exists Colorectal Cancer Screening 08/09/2024 Lipid Panel 12/06/2027 12/05/2022, 05/18, 10/12/2021, Additional history exists DTaP,Tdap,and Td Vaccines (3 - Td or Tdap) 05/26/2028 05/26/2018, 02/12/2008 Pneumococcal Vaccine: 65+ Years Completed 05/18/2022, 04/04/2015, 07/06/2012 Zoster Vaccines Completed 07/18/2022, 07/2021, 12/21/2014 Influenza Vaccine (FLU shot) Completed 03/2023, 02/27/2022, 03/18/2020, Additional history exists GARDASIL-HPV IMMUNIZATION [...] filedocumented as of this encounter Care Teams Reference Assistant Relationship Specialty Start Date End Date Julian Gray DO [address] [place] [address] PCP - General Internal Medicine 12/06/23 documented as of this encounter
--- OUTSIDE RECORDS SUMMARY | 2024-04-29 14:11 | External Medical Summary ---
Author Name Unknown Address Unknown Organization K01:LABORATORY [place] [address] [address] [facility] [address] [facility] [address] Laboratory Report Ordering Provider Test Date Status JEFFREY RODRIGUEZ 12/17/2023 11:42:10 Final Observation Date Value Abnormality Reference (Units ) Status Calcium.ionized [Moles/volume] in Serum or Plasma by Ion-selective membrane electrode (ISE) 12/17/2023 11:42:10 1.27 1.13-1.32 (mmol/L) Final This test was developed and its performance characteristics dtermined by [employer]. It has not been cleared or approved by the [place] Food and Drug Administration Performing Location LABORATORY [place] [address] [place] [address]
--- OUTSIDE RECORDS SUMMARY | 2024-04-29 14:11 | External Medical Summary ---
Author Name Unknown Address Unknown Organization K01:LABORATORY [facility] [place] - [address] [facility] [address] Laboratory Report Ordering Provider Test Date Status JEFFREY RODRIGUEZ 12/12/2023 14:19:21 Final Observation Date Value Abnormality Reference (Units ) Status BUN 12/12/2023 14:19:21 15 6-20 (mg/dL) Final Creatinine 12/12/2023 14:19:21 1.0 0.6-1.2 (mg/dL) Final Glomerular filtration rate/1.73 sq M.predicted [Volume Rate/Area] in Serum, Plasma or Blood by Creatinine-based formula (CKD-EPI) 12/12/2023 14:19:21 78 >=60 (mL/min) Final eGFR is calculated based on the CKD-EPI 2020 equation Sodium 12/12/2023 14:19:21 144 135-146 (m mol/L) Final Potassium 12/12/2023 14:19:21 4.8 3.5-5.1 (m mol/L) Final Cl 12/12/2023 14:19:21 105 98-107 (mm ol/L) Final CO2 12/12/2023 14:19:21 28 22-32 (mmo l/L) Final Anion gap 12/12/2023 14:19:21 11 7-15 (mmol /L) Final Glucose 12/12/2023 14:19:21 98 70-120 (mg /dL) Final Albumin 12/12/2023 14:19:21 4.6 3.8-5.0 (g /dL) Final AST (Aspartate aminotransferase) 12/12/2023 14:19:21 29 10-50 (U/L) Final Result may be falsely elevat ed due to hemolysis. Alk Phos 12/12/2023 14:19:21 81 35-130 (U/ L) Final Bilirubin, Total 12/12/2023 14:19:21 0.8 <=1 .2 (mg/dL) Final Calcium 12/12/2023 14:19:21 10.4 Above high normal 8. 4-10.2 (mg/dL) Final Protein 12/12/2023 14:19:21 6.9 6.0-8.3 (g /dL) Final ALT (Alanine aminotransferase) 12/12/2023 14:19:21 21 10-50 (U/L) Kervin fagan Performing Location LABORATORY [facility] [place] - [address] [facility] [address]
--- OUTSIDE RECORDS SUMMARY | 2024-04-29 14:11 | External Medical Summary | Summary of Care ---
Author Name Unknown Organization [facility] Address [address] [place] [address] Phone [phone] Care Team Providers Care Cheese Pancake Roller Name Role Phone Michael Gray DO Primary Care Provider [phone] Reason for Visit * Reason Onset Date Comments Test Results 12/13/202312/12; 12/15 Encounter Details Date Type Department Care Team (Late st Contact Info) Description 12/13/2023 Telephone Family Practice [address] [facility] [place] [address] [place] [phone] Michael Gray [address] [place] [address] Test Results (12/12; 12/15) Allergies No known [...] mRNA, LNP-s, No Pre serve, 2-Dose Series ([employer]) 03/14/2021,08/30/2020,08/09/2020 COVID-19, MRNA-LNP, 23-24, P F, 49 [...] encounter Miscellaneous Notes * Addendum Note - Michael Gray DO - 12/18/2023 3:55 PM EDTAddended by: MICHAEL GRAY on: 12/18/2023 03:55 PM Modules accepted: Orders * Result Encounter Note - Jada Kingsley LPN - 12/18/2023 3:39 PM EDT MyG message sent to patient. * Addendum Note - Jada Kingsley LPN [...] 12/13/2023 8:29 AM EDT ----- Message from Michael Gray DO sent at 12/13/2023 8:05 AM EDT ----- Calcium is up Check Ionized calcium, Vitamin D and PTH documented in this encounter Plan of Treatment Upcoming Encounters Date Type Department Care Team (Late st Contact Info) Description 05/26/2024 2:00 PM EST Office Visit Family Practice [address] [facility] [place] [address] [place] [address] Michael Gray DO [address] [place] [address] Scheduled Orders Name Type Priority Associated Diagnoses Orde r Schedule BASIC METABOLIC PANEL Lab Routine Serum calcium elevated High serum parathyroid hormone (PTH) Expected: 03/19/2024 (Approximate), Expires: 12/17/2024 PTH Lab Routine Serum calcium elevated High serum parathyroid hormone (PTH) Expected: 03/19/2024 (Approximate), Expires: 12/17/2024 Health Maintenance Due Date Last Done Comments [...] 65 pg/mL 12/17/2023 11:45 PM EDT LABORATORY [facility] Blood Venous blood specimen / Unknown Venipuncture / Unknown 12/17/2023 11:42 AM EDT 12/17/2023 11:42 AM EDT Michael Gray DO LAB BLOOD ORDERABLES LABORATORY [facility] [address] [place] [address] * CALCIUM, IONIZED (12/17/2023 11:42 AM EDT) Calcium, Ionized 1.27 1.13 - 1.32 mmol/L 12/17/2023 10:28 PM EDT LABORATORY [facility] Comment:This test was develo ped and its performance characteristics dtermined by [email or web address]. It has not been cleared or approved by the [place] Food and Drug Administration Blood Venous blood specimen / Unknown Venipuncture / Unknown 12/17/2023 11:42 AM EDT 12/17/2023 11:42 AM EDT Michael Gray DO LAB BLOOD ORDERABLES Performing Organization Address [facility] Co de Phone Number LABORATORY [facility] [address] [place] [address] * 25-HYDROXY VITAMIN D (12/12/2023 2:19 PM EDT) 25-Hydroxy Vitamin D 36 >19 ng/mL 12/13/2023 10:02 AM EDT LABORATORY [facility] Blood Venous blood specimen / Unknown Venipuncture / Unknown 12/12/2023 2:19 PM EDT 12/12/2023 2:19 PM EDT Narrative LABORATORY [facility] - 12/13/2023 10:02 AM EDT Deficient: <20 ng/mL Insufficient: 20-29 ng/mL Recommended/Optimum:30-50 ng/mL Vitamin D intoxication is rare. If suspicious of Vitamin D toxicity, evaluation of serum Calcium and PTH is recommended. Michael Gray DO LAB BLOOD ORDERABLES Performing Organization Address [facility] Co de Phone Number LABORATORY [address] [address] documented in this encounter Visit Diagnoses Diagnosis Serum calcium elevated- Primary Hypercalcemia High serum parathyroid hormone (PTH) documented in this encounter Care Teams Cheese Pancake Roller Relationship Specialty Start Date End Date Michael Gray DO [address] [place] [address] PCP - General Internal Medicine 12/06/23 documented as of this encounter
[2024-04-29] MEDS ORDERED: MoRPHine SULFATE 2 MG/ML CARP IV PRN (14:47)
[2024-04-29] MEDS ORDERED: MoRPHine SULFATE 4 MG/ML 1 ML CARP\\VIAL IV PRN (14:47)
[2024-04-29] MEDS: LACTATED RINGER'S 1,000 ML IV SCH (15:00)
[2024-04-29] MEDS: LABETALOL HCL IV 5 MG/ML 20ML IV STA (15:00)
[2024-04-29] MEDS: ACETAMINOPHEN 1,000 MG/100 ML VIAL IV SCH (16:38)
[2024-04-29 18:17] LABS: Appearance Urine Clear (Clear); Bacteria Urine Automated None Seen (None Seen); Bilirubin Urine Negative (Negative); Blood Urine Negative (Negative); Cast Urine Automated 0-2 /lpf (0-2); Color Urine Yellow; Epithelial Cell Urine Auto 0-2 /hpf (0-2); Glucose Urine UA Negative (Negative); Ketones Urine Trace (Negative); Leukocyte Esterase Urine Negative (Negative); Nitrite Urine Negative (Negative); Protein Urine 1+ (Negative); Specific Gravity Urine > 1.045 (1.000-1.030); Urobilinogen Urine Negative (Negative); WBC Urine Automated 21-50 /hpf (0-5)
--- NOTE | 2024-04-30 07:57 | Surgery Progress Note ---
Date of Service April 30, 2024 Assessment & Plan (1) SBO (small bowel obstruction): Plan: POD#1 exlap, release of SBO (no bowel resection performed) Labs are pending this AM. Vital signs are stable NGT in place with greenish/brown output, 175cc documented + abdominal pain present, worse with movement. taking tylenol, reminded pt morphine available prn Encourage ambulation and pulmonary toilet Continue NPO/NGT for now Admission and Anticipated Discharge Date Admission Date: April 29, 2024 Supervising Physician Co-Signing Physician Notes Postoperative day 1 ex lap, release of small bowel obstruction reduction of internal hernia Continue NG tube n.p.o. as she has no bowel function yet Pain control as needed Encourage ambulation and incentive spirometry Pharmacologic DVT prophylaxis Await return of bowel function Subjective Patient feeling okay this AM, but does report + abdominal pain, worse with movement. Denies nausea/vomiting. Able to void. No flatus/BM since surgery. Physical Exam 2 Physical Exam: awake/alert, no distress Respiratory: normal respiratory effort Gastrointestinal (Abdomen): Percussion/Palpation: + abdomen tender and abdomen soft midline surgical dressing in place Results & Data Vital Signs (Past 12 Hours) Vital Signs Temp Pulse Resp BP Pulse Ox O2 Del Method 04/30/24 03:49 98.1 F 75 16 121/82 97 Room Air 04/29/24 23:12 98.4 F 65 18 126/74 97 Room Air 04/29/24 21:49 98.8 F 84 16 123/70 96 Room Air PG Care Time/CCT Total # of Minutes Spent Total Time Spent with Patient: Total time spent is greater than 50% in coordination of care (as documented) at patient's floor/unit and/or counseling patient: Coding Level of Care Code 76808 Post Operative Follow-Up Diagnoses SBO (small bowel obstruction) K56.609
[2024-04-30 08:54] LABS: Basophils # (auto) 0.02 K/uL (0.00-0.20); Basophils % (auto) 0.2 %; Immature Granulocytes # (auto) 0.03 K/uL (0.01-0.20); Immature Granulocytes % (auto) 0.3 %; Lymphocytes # (auto) 1.41 K/uL (1.20-3.40); Lymphocytes % (auto) 15.8 %; Mean Corpuscular Hemoglobin 29.7 pg (25.0-34.0); Mean Corpuscular Hgb Conc 32.6 g/dL (32.0-36.0); Mean Corpuscular Volume 91.3 fL (80.0-100.0); Mean Platelet Volume 12.3 fL (9.4-12.4); Monocytes # (auto) 1.04 K/uL (0.11-0.59); Monocytes % (auto) 11.7 %; Neutrophils # (auto) 6.41 K/uL (1.40-6.50); Platelet Count 141 K/uL (130-400); RDW Coefficient of Variation 13.2 % (11.5-14.5); RDW Standard Deviation 44.5 fL (36.4-46.3); Red Blood Count 4.71 M/uL (4.70-6.10); White Blood Count 8.91 K/ul (4.8-10.8)
[2024-04-30 09:09] LABS: BUN Creatinine Ratio 21.4 (10-20); Calcium 9.4 mg/dl (8.6-10.3); Creatinine Clr Calc Pharmacy 83.8 ml/min; Potassium 4.1 mmol/L (3.5-5.1)
[2024-04-30] MEDS: ENOXAPARIN INJ 40 MG/0.4 ML SYR SQ SCH (10:34)
[2024-04-30] MEDS: LACTATED RINGER'S 1,000 ML IV SCH (18:16)
--- NOTE | 2024-05-01 08:17 | Surgery Progress Note ---
Date of Service May 01, 2024 Assessment & Plan (1) SBO (small bowel obstruction): Plan: POD#2 exlap, release of SBO (no bowel resection performed) Labs are pending this AM. Vital signs are stable Prophylactic lovenox started yesterday NGT in place with more dark reddish/brown fluid noted, 200cc documented. Will order PPI + abdominal pain present, worse with movement. taking tylenol, reminded pt morphine available prn Encourage ambulation and pulmonary toilet Continue NPO/NGT for now while awaiting return of bowel function Plan on removal of dressing tomorrow, if c/d/i may keep open to air, if any drainage may replace gauze/ABD/medipore Admission and Anticipated Discharge Date Admission Date: April 29, 2024 Subjective Patient feels about the same as yesterday. Pain is manageable at rest, but feels it is worse with movement and/or coughing/sneezing. No nausea/vomiting. Has not passed flatus or had BM since surgery. Reports walking in the hallways a couple times yesterday. Physical Exam Physical Exam: awake/alert, no distress Respiratory: normal respiratory effort Gastrointestinal (Abdomen): Inspection/Auscultation: + abdominal surgical incision (surgical dressings in place, d/c/i); abdomen not distended Percussion/Palpation: + abdomen tender (expected debby incisional discomfort ) and abdomen soft NGT in place, a bit more dark/reddish brown in appearance today, 200cc noted Results & Data Vital Signs (Past 12 Hours) Vital Signs Temp Pulse Resp BP Pulse Ox O2 Del Method 05/01/24 07:42 97.9 F 63 18 132/79 96 Room Air 04/30/24 21:21 98.1 F 68 14 151/82 H 94 Room Air PG Care Time/CCT Total # of Minutes Spent Total Time Spent with Patient: Total time spent is greater than 50% in coordination of care (as documented) at patient's floor/unit and/or counseling patient: Coding Level of Care Code 70638 Post Operative Follow-Up Diagnoses SBO (small bowel obstruction) K56.609
[2024-05-01 08:55] LABS: Basophils # (auto) 0.02 K/uL (0.00-0.20); Basophils % (auto) 0.3 %; Eosinophils # (auto) 0.09 K/uL (0.00-0.50); Eosinophils % (auto) 1.3 %; Hematocrit (blood only) 40.9 % (42.0-52.0); Hemoglobin 13.2 g/dl (14.0-18.0); Immature Granulocytes # (auto) 0.01 K/uL (0.01-0.20); Immature Granulocytes % (auto) 0.1 %; Lymphocytes # (auto) 1.44 K/uL (1.20-3.40); Lymphocytes % (auto) 20.5 %; Mean Corpuscular Hemoglobin 29.9 pg (25.0-34.0); Mean Corpuscular Hgb Conc 32.3 g/dL (32.0-36.0); Mean Corpuscular Volume 92.5 fL (80.0-100.0); Mean Platelet Volume 12.3 fL (9.4-12.4); Monocytes # (auto) 0.71 K/uL (0.11-0.59); Monocytes % (auto) 10.1 %; Neutrophils # (auto) 4.75 K/uL (1.40-6.50); Neutrophils % (auto) 67.7 %; Platelet Count 127 K/uL (130-400); RDW Coefficient of Variation 13.2 % (11.5-14.5); RDW Standard Deviation 44.4 fL (36.4-46.3); Red Blood Count 4.42 M/uL (4.70-6.10); White Blood Count 7.02 K/ul (4.8-10.8)
[2024-05-01 09:08] LABS: BUN Creatinine Ratio 23.8 (10-20); Calcium 9.2 mg/dl (8.6-10.3); Creatinine Clr Calc Pharmacy 93.1 ml/min; Potassium 3.6 mmol/L (3.5-5.1)
[2024-05-01] MEDS: PANTOprazole 40 MG/10 ML SYR IV SCH (09:31)
--- NOTE | 2024-05-02 06:35 | Surgery Progress Note ---
Date of Service May 02, 2024 Assessment & Plan (1) SBO (small bowel obstruction): Plan: POD#3 exlap, release of SBO (no bowel resection performed) -Labs are pending this AM. Vital signs have reamined stable -Continue Lovenox for chemical DVT ppx -NGT in place with brown fluid noted, 200cc documented. PPI has been ordered. Patient is starting to pass gas however no BM. If continues to improve will consider clears later today vs possibly tomorrow. For now will keep NPO and NGT to remain in place. -Pain better controlled this morning -Encourage ambulation and pulmonary toilet -Surgical dressing removed on exam, incision is c/d/i without any signs of infection, ann marie in place. Site was kept open to air - if any drainage may replace gauze/ABD/medipore Admission and Anticipated Discharge Date Admission Date: April 29, 2024 Supervising Physician Co-Signing Physician Notes I have seen and examined this patient this am. I agree with the above assessment May clamp NGT today. Check residuals after 4-6 hours and may start clear liquids if less than 100mL. Subjective Patient states his abdominal pain is starting to improve from previous NGT remains in place with 200mL output recorded in 24 hours . Denies N/V Patient started passing gas yesterday and overnight however no BM Midline dressing was taken down during exam, ann marie in place and no active signs of infection present Afebrile denies fevers or chills Physical Exam Constitutional: WD/WN, vitals as above Respiratory: normal respiratory effort, lungs clear to auscultation Cardiovascular: RRR, no murmur, no edema Gastrointestinal (Abdomen): Abdomen soft and nondistended. +Appropriate TTP over incision site Surgical dressing taken off during exam, site is c/d/i without any overlying signs of infection. [place] in place NGT in place with 200mL in 24 hours recorded Skin: no rashes, warm and dry Results & Data Vital Signs (Past 12 Hours) Vital Signs Temp Pulse Resp BP Pulse Ox O2 Del Method 05/01/24 20:10 36.7 C 66 18 150/86 H 97 Room Air PG Care Time/CCT Total # of Minutes Spent Total Time Spent with Patient: Total time spent is greater than 50% in coordination of care (as documented) at patient's floor/unit and/or counseling patient: Coding Level of Care Code 51787 Post Operative Follow-Up Diagnoses SBO (small bowel obstruction) K56.609
[2024-05-02 06:38] LABS: Basophils # (auto) 0.05 K/uL (0.00-0.20); Basophils % (auto) 0.7 %; Eosinophils # (auto) 0.21 K/uL (0.00-0.50); Eosinophils % (auto) 3.1 %; Hematocrit (blood only) 38.9 % (42.0-52.0); Hemoglobin 12.9 g/dl (14.0-18.0); Immature Granulocytes # (auto) 0.02 K/uL (0.01-0.20); Immature Granulocytes % (auto) 0.3 %; Lymphocytes # (auto) 1.33 K/uL (1.20-3.40); Lymphocytes % (auto) 19.7 %; Mean Corpuscular Hemoglobin 30.2 pg (25.0-34.0); Mean Corpuscular Hgb Conc 33.2 g/dL (32.0-36.0); Mean Corpuscular Volume 91.1 fL (80.0-100.0); Mean Platelet Volume 12.1 fL (9.4-12.4); Monocytes % (auto) 10.4 %; Neutrophils # (auto) 4.44 K/uL (1.40-6.50); Neutrophils % (auto) 65.8 %; Platelet Count 134 K/uL (130-400); RDW Coefficient of Variation 12.6 % (11.5-14.5); RDW Standard Deviation 41.9 fL (36.4-46.3); Red Blood Count 4.27 M/uL (4.70-6.10); White Blood Count 6.75 K/ul (4.8-10.8)
[2024-05-02 06:56] LABS: Calcium 9.1 mg/dl (8.6-10.3); Creatinine Clr Calc Pharmacy 97.8 ml/min; Potassium 3.2 mmol/L (3.5-5.1)
[2024-05-02] MEDS ORDERED: Nursing to Pharmacy Communication ONE (16:34)
--- NOTE | 2024-05-03 06:07 | Surgery Progress Note ---
Date of Service May 03, 2024 Assessment & Plan (1) SBO (small bowel obstruction): Plan: POD#4 exlap, release of SBO (no bowel resection performed) -Labs are pending this AM. Vital signs have remained stable -Continue Lovenox for chemical DVT ppx -Continue PPI. Patient passing small amount of gas however no BM yet. NGT has remained clamped since last evening and has no complaints of worsening pain, N/V. Will check residue this morning and possibly d/c NGT. -Continue pain control and encourage ambulation and pulmonary toilet -Midline incision with ann marie in place, currently no signs of infection, site was kept open to air - if any drainage may replace gauze/ABD/medipore. Patient would like to shower, ok from a post-op perspective and was given care instructions when bathing. Admission and Anticipated Discharge Date Admission Date: April 29, 2024 Supervising Physician Co-Signing Physician Notes I have seen and examined the patient this am. He has tolerated NGT clamping with minimal residuals. He does mention decreased flatus this am but still is passing flatus. Abdominal pain at incision only when he moves or uses his abdominal wall muscles May use a warm compressed to help with abdominal wall pain Continue aggressive ambulation today May continue with clears through lunch and remove the NGT after lunch if he has continued passing flatus throughout the day today. May consider advancing to fulls for dinner if he has had better return of bowel function today. We continue to follow. Subjective Patient states abdominal pain is tolerable however does complain of more muscle cramping mostly with movement NGT remains in place and has been clamped overnight and patient was given small amount of clears and was able to tolerate without any issues of N/V. Is complaining about the NGT being uncomfortable. Passing a small amount of gas however still no BM Afebrile Physical Exam Constitutional: WD/WN, vitals as above Respiratory: normal respiratory effort, lungs clear to auscultation Cardiovascular: RRR, no murmur, no edema Gastrointestinal (Abdomen): Abdomen soft and nondistended. +Appropriate TTP over incision site. Mid line incision is c/d/i without any overlying signs of infection. [place] in place NGT in place and clamped at this time Skin: no rashes, warm and dry Results & Data Vital Signs (Past 12 Hours) Vital Signs Temp Pulse Resp BP Pulse Ox O2 Del Method 05/02/24 20:53 36.5 C 73 18 161/81 H 97 Room Air PG Care Time/CCT Total # of Minutes Spent Total Time Spent with Patient: Total time spent is greater than 50% in coordination of care (as documented) at patient's floor/unit and/or counseling patient: Coding Level of Care Code 75130 Post Operative Follow-Up Diagnoses SBO (small bowel obstruction) K56.609
[2024-05-03] MEDS: CHLORASEPTIC (PHENOL) 1.4% SOLN 180 ML BTL MT PRN (09:36)
[2024-05-04] MEDS ORDERED: Nursing to Pharmacy Communication SCH (04:15)
--- NOTE | 2024-05-04 11:40 | Surgery Progress Note ---
<Statement entered by Darcie Anders DO - 05/04/24 12:58> I have seen and examined this patient with the surgical PA and I agree with this plan, continue clears until more significant flatus Date of Service May 04, 2024 Assessment & Plan (1) SBO (small bowel obstruction): Plan: s/p exlap and release of SBO on 04/29 NGT removed over the wknd He is passing some flatus, but not a significant amount Would continue clears for today unless further return of bowel function Incisions c/d/i. some mild distention and debby incisional discomfort to palpation Continue to encourage OOB and pulmonary toilet Admission and Anticipated Discharge Date Admission Date: April 29, 2024 Subjective Patient feeling okay. He continues to pass a small amount of gas. No BM. Tolerating clears, no n/v. Has been ambulating the halls frequently. Physical Exam Physical Exam: awake/alert, no distress Gastrointestinal (Abdomen): Inspection/Auscultation: + abdomen distended (mild) and + abdominal surgical incision (midline incision w/ an nmarie, no infection. c/d/i ) Percussion/Palpation: + abdomen tender (mild debby i ncisional discomfort to palpation ) and abdomen soft Results & Data Vital Signs (Past 12 Hours) Vital Signs Temp Pulse Resp BP Pulse Ox O2 Del Method 05/04/24 07:55 98.6 F 69 16 125/77 94 Room Air PG Care Time/CCT Total # of Minutes Spent Total Time Spent with Patient: Total time spent is greater than 50% in coordination of care (as documented) at patient's floor/unit and/or counseling patient: Coding Level of Care Code 80849 Post Operative Follow-Up Diagnoses SBO (small bowel obstruction) K56.609
[2024-05-05] MEDS ORDERED: ACETAMINOPHEN 325 MG TAB PO PRN (10:20)
[2024-05-05] MEDS ORDERED: oxyCODONE HCL IR 5 MG TAB (IMMEDIATE RELEASE) PO PRN (10:20)
--- NOTE | 2024-05-05 10:43 | Surgery Progress Note ---
Date of Service May 05, 2024 Assessment & Plan (1) SBO (small bowel obstruction): Plan: s/p exlap and release of SBO on 04/29 having bms , adv to full liquids no s/s of infection ann marie CDI VSS , afebrile OOB ambulation Admission and Anticipated Discharge Date Admission Date: April 29, 2024 Supervising Physician Co-Signing Physician Notes Patient seen and examined, agree with above. Status post laparotomy and release of bowel obstruction. Having bowel movements passing gas, tolerated clears. Will advance to full's and later to low fiber if tolerates. Potential discharge in next day or 2 Subjective + Bms, pain controlled without meds no n/v , fever,chills , cp SBO Review of Systems Constitutional: no fever and no chills Respiratory: no dyspnea Cardiovascular: no chest pain Gastrointestinal: + bloating; no abdominal pain, no nausea and no vomiting Musculoskeletal: no muscle weakness Physical Exam Constitutional: + acute distress, cooperative and comfor table Respiratory: normal respiratory effort and able to speak in complete sentences; no respiratory distress Cardiovascular: Rate/Rhythm: regular rate Gastrointestinal (Abdomen): Inspection/Auscultation: + abdominal surgical incision (CDI, no s/s infection ) Percussion/Palpation: abdomen soft Psychiatric: Orientation: alert and oriented x 3 Results & Data Vital Signs (Past 12 Hours) Vital Signs Temp Pulse Resp BP Pulse Ox O2 Del Method 05/05/24 08:36 98.2 F 78 20 130/71 93 Room Air PG Care Time/CCT Total # of Minutes Spent Total Time Spent with Patient: Total time spent is greater than 50% in coordination of care (as documented) at patient's floor/unit and/or counseling patient: Coding Level of Care Code 07390 Post Operative Follow-Up Diagnoses SBO (small bowel obstruction) K56.609
[2024-05-06] MEDS ORDERED: POTASSIUM CHLORIDE CRTAB 20 MEQ TABCR PO STA (07:13)
--- NOTE | 2024-05-06 08:08 | Surgery Progress Note ---
Date of Service May 06, 2024 Assessment & Plan (1) SBO (small bowel obstruction): Plan: s/p exlap and release of SBO on 04/29 having loose diarrhea x10 yesterday will check for c diff adv to low fiber no s/s of infection ann marie CDI VSS , afebrile OOB ambulation ordered am labs possible d/c later today vs tomorrow pending labs and diet advancement Admission and Anticipated Discharge Date Admission Date: April 29, 2024 Supervising Physician Co-Signing Physician Notes Patient seen and examined, agree with above. Status post laparotomy for bowel obstruction,, had multiple loose bowel movements over past 24 to 48 hours. C. difficile was ordered but is still pending as the patient has not had a bowel movement since then. Tolerated low fiber, a little bit sore after lunch today. Otherwise doing well. On exam is afebrile stable vitals. His abdomen is soft, probably tender to palpation. Potential discharge tomorrow follow-up with Dr. Edwards as an outpatient Subjective + Bms 10+ yesterday loose diarrhea , pain controlled without meds no n/v , fever,chills , cp SBO Review of Systems Constitutional: no fever and no chills Respiratory: no dyspnea Cardiovascular: no chest pain Gastrointestinal: + diarrhea/loose stools; no abdominal pa in, no nausea and no vomiting Genitourinary: no dysuria or no urinary incontinence Musculoskeletal: no muscle weakness Psychiatric: no confusion Physical Exam Constitutional: cooperative and comfortable; no acute distress Respiratory: normal respiratory effort and able to speak in complete sentences; no respiratory distress Cardiovascular: Rate/Rhythm: regular rate Gastrointestinal (Abdomen): Inspection/Auscultation: + abdominal surgical incision (CDI, no s/s infection ) Percussion/Palpation: abdomen soft Psychiatric: Orientation: alert and oriented x 3 Results & Data Vital Signs (Past 12 Hours) Vital Signs Temp Pulse Pulse Resp BP Pulse Ox O2 Del Method 05/06/24 07:24 98.2 F 64 16 116/69 95 Room Air 05/05/24 20:19 98.6 F 68 16 121/71 97 Room Air PG Care Time/CCT Total # of Minutes Spent Total Time Spent with Patient: Total time spent is greater than 50% in coordination of care (as documented) at patient's floor/unit and/or counseling patient: Coding Level of Care Code 30945 Post Operative Follow-Up Diagnoses SBO (small bowel obstruction) K56.609
[2024-05-06 10:44] LABS: Basophils # (auto) 0.04 K/uL (0.00-0.20); Basophils % (auto) 0.5 %; Eosinophils # (auto) 0.22 K/uL (0.00-0.50); Eosinophils % (auto) 2.9 %; Hematocrit (blood only) 40.9 % (42.0-52.0); Hemoglobin 13.4 g/dl (14.0-18.0); Immature Granulocytes # (auto) 0.02 K/uL (0.01-0.20); Immature Granulocytes % (auto) 0.3 %; Lymphocytes # (auto) 1.03 K/uL (1.20-3.40); Lymphocytes % (auto) 13.5 %; Mean Corpuscular Hemoglobin 30.3 pg (25.0-34.0); Mean Corpuscular Hgb Conc 32.8 g/dL (32.0-36.0); Mean Corpuscular Volume 92.5 fL (80.0-100.0); Mean Platelet Volume 11.4 fL (9.4-12.4); Monocytes # (auto) 0.74 K/uL (0.11-0.59); Monocytes % (auto) 9.7 %; Neutrophils # (auto) 5.57 K/uL (1.40-6.50); Neutrophils % (auto) 73.1 %; Platelet Count 198 K/uL (130-400); RDW Coefficient of Variation 12.6 % (11.5-14.5); RDW Standard Deviation 42.8 fL (36.4-46.3); Red Blood Count 4.42 M/uL (4.70-6.10); White Blood Count 7.62 K/ul (4.8-10.8)
[2024-05-06 11:09] LABS: BUN Creatinine Ratio 21.7 (10-20); Calcium 9.4 mg/dl (8.6-10.3); Creatinine Clr Calc Pharmacy 70.7 ml/min; Potassium 3.7 mmol/L (3.5-5.1)
[2024-05-07 08:04] LABS: Basophils # (auto) 0.04 K/uL (0.00-0.20); Basophils % (auto) 0.8 %; Eosinophils # (auto) 0.21 K/uL (0.00-0.50); Eosinophils % (auto) 4.4 %; Hematocrit (blood only) 35.7 % (42.0-52.0); Hemoglobin 11.7 g/dl (14.0-18.0); Immature Granulocytes # (auto) 0.01 K/uL (0.01-0.20); Immature Granulocytes % (auto) 0.2 %; Lymphocytes # (auto) 1.24 K/uL (1.20-3.40); Lymphocytes % (auto) 25.8 %; Mean Corpuscular Hemoglobin 30.1 pg (25.0-34.0); Mean Corpuscular Hgb Conc 32.8 g/dL (32.0-36.0); Mean Corpuscular Volume 91.8 fL (80.0-100.0); Mean Platelet Volume 11.6 fL (9.4-12.4); Monocytes # (auto) 0.54 K/uL (0.11-0.59); Monocytes % (auto) 11.3 %; Neutrophils # (auto) 2.76 K/uL (1.40-6.50); Neutrophils % (auto) 57.5 %; Platelet Count 171 K/uL (130-400); RDW Coefficient of Variation 12.8 % (11.5-14.5); RDW Standard Deviation 42.5 fL (36.4-46.3); Red Blood Count 3.89 M/uL (4.70-6.10)
[2024-05-07 08:24] LABS: Calcium 8.7 mg/dl (8.6-10.3); Creatinine Clr Calc Pharmacy 97.8 ml/min; Potassium 3.5 mmol/L (3.5-5.1)
--- NOTE | 2024-05-07 08:45 | Surgery Progress Note ---
Date of Service May 07, 2024 Assessment & Plan (1) SBO (small bowel obstruction): Plan: s/p exlap and release of SBO on 04/29 Bms have slowed down since yesterday , cdiff was negative tolerating low fiber no s/s of infection ann marie CDI VSS , afebrile OOB ambulation d/c later this afternoon when has ride f/u next week in office defers narcotic pain medication instructed to call office if changes mind at home Admission and Anticipated Discharge Date Admission Date: April 29, 2024 Supervising Physician Co-Signing Physician Notes Patient seen and examined, agree with above. Status post laparotomy for small bowel obstruction. Tolerating low fiber diet, bowel movements becoming less frequent and little firmer. C. difficile negative. Afebrile stable vitals. Incision with ann marie, no infection or hernia. DC to home later today. Low fiber diet, will have the broaching machine operator stop by by since he is a vegan. Follow- up with Dr. Edwards in 2 weeks. Wound care instructions, activity restrictions, and return precautions given Subjective no complaints , Bms have slowed down since yesterday Review of Systems Constitutional: no fever and no chills Ear, Nose, Mouth, Throat: no ear pain, no tinnitus and no nasal congestion Respiratory: no dyspnea Cardiovascular: no chest pain Gastrointestinal: no abdominal pain, no nausea and no vomiting Genitourinary: no dysuria or no urinary incontinence Musculoskeletal: no muscle weakness Integumentary: no erythema Neurologic: no gait abnormality, no unsteadiness and no headache(s) Psychiatric: no confusion Physical Exam Constitutional: cooperative and comfortable; no acute distress Respiratory: normal respiratory effort and able to speak in complete sentences; no respiratory distress Cardiovascular: Rate/Rhythm: regular rate Gastrointestinal (Abdomen): Inspection/Auscultation: + abdominal surgical incision (CDI, no s/s infection ) Percussion/Palpation: abdomen soft Psychiatric: Orientation: alert and oriented x 3 Results & Data Vital Signs (Past 12 Hours) Vital Signs Temp Pulse Resp BP Pulse Ox O2 Del Method 05/07/24 07:26 97.9 F 59 L 16 118/76 96 Room Air 05/06/24 20:45 97.7 F 64 16 116/78 94 Room Air Results CBC w Diff Results: RBC 3.89 M/uL (4.70-6.10) L 05/07/24 WBC 4.80 K/ul (4.8-10.8) 05/07/24 Hgb 11.7 g/dl (14.0-18.0) L 05/07/24 Hct 35.7 % (42.0-52.0) L 05/07/24 MCV 91.8 fL (80.0-100.0) 05/07/24 MCH 30.1 pg (25.0-34.0) 05/07/24 MCHC 32.8 g/dL (32.0-36.0) 05/07/24 RDW Standard Deviation 42.5 fL (36.4-46.3) 05/07/24 RDW Coefficient of Variation 12.8 % (11.5-14.5) 05/07/24 Plt Count 171 K/uL (130-400) 05/07/24 MPV 11.6 fL (9.4-12.4) 05/07/24 Neutrophils (%) (Auto) 57.5 % 05/07/24 Lymphocytes (%) (Auto) 25.8 % 05/07/24 Monocytes # (Auto) 0.54 K/uL (0.11-0.59) 05/07/24 Eosinophils # (Auto) 0.21 K/uL (0.00-0.50) 05/07/24 Immature Granulocyte % (Auto) 0.2 % 05/07/24 Neutrophils # (Auto) 2.76 K/uL (1.40-6.50) 05/07/24 Lymphocytes # (Auto) 1.24 K/uL (1.20-3.40) 05/07/24 Monocytes # (Auto) 0.54 K/uL (0.11-0.59) 05/07/24 Eosinophils # (Auto) 0.21 K/uL (0.00-0.50) 05/07/24 Basophils # (Auto) 0.04 K/uL (0.00-0.20) 05/07/24 Immature Granulocyte # (Auto) 0.01 K/uL (0.01-0.20) 4 ANC 2.22 K/uL (1.4-6.5) 05/25/17 ALC 1.59 K/uL (1.2-3.4) 05/25/17 Neutrophils % (Manual) 51.7 % 05/25/17 Lymphocytes % (Manual) 13.8 % 05/25/17 Monocytes % (Manual) 9.5 % 05/25/17 Eosinophils % (Manual) 1.7 % 05/25/17 Neutrophils # (Manual) 2.22 K/uL (1.4-6.5) 05/25/17 Lymphocytes # (Manual) 0.59 K/uL (1.2-3.4) L 05/25/17 Monocytes # (Manual) 0.41 K/uL (0.11-0.59) 05/25/17 Eosinophils # (Manual) 0.07 K/uL (0-0.5) 05/25/17 Red Blood Cell Morphology Unremarkable 05/25/17 PG Care Time/CCT Total # of Minutes Spent Total Time Spent with Patient: Total time spent is greater than 50% in coordination of care (as documented) at patient's floor/unit and/or counseling patient: Coding Level of Care Code 60882 Post Operative Follow-Up Diagnoses SBO (small bowel obstruction) K56.609
--- NOTE | 2024-05-11 09:04 | Discharge Summary ---
Date of Service April 29, 2024 Admission HPI Per Admitting Provider This is a 74-year-old male who presented to the ER with 2 weeks of abdominal pain, generalized in nature. He states that over the last day or so the pain got significantly worse. He describes it as sharp cramping that comes and goes. No aggravating or relieving factors. He has had nausea and emesis as well. His last normal bowel movement was yesterday. He states he is not passing flatus. He did have a history of a laparoscopic right inguinal hernia repair in February 2024 with [facility] general surgery at [facility]. Otherwise he has had no abdominal surgeries. He denies any fevers or chills. Principal Diagnosis small bowel obstruction Discharge Exam awake/alert, no distress Respiratory normal respiratory effort Gastrointestinal (Abdomen) Inspection/Auscultation: + abdominal surgical incision (c/d/i no signs of infection ) Percussion/Palpation: abdomen soft Discharge Data Allergies Allergy/AdvReac Type Severity Reaction Status Date / Time No Known Allergies Allergy Verified 09/12/22 08:27 Consultations 04/29/24 09:44 Consult General Surgery Stat Procedures Performed Operation Date: 04/29/24 08:20 Actual Procedures s Reduction of Internal Hernia - Ivan Edwards DO p Exploratory Laparotomy with Release of Bowel Obstruction, (Left) - Ivan Edwards DO Ordered Studies 04/29/24 08:39 CT abd pelvis IV con only Stat Hospital Course (1) SBO (small bowel obstruction): This is a 74yM who is s/p laparoscopic right inguinal hernia repair feb 2024 with [facility] who presented to the [facility] ED on 04/29/24 with complaints of abdominal pain, nausea/vomiting. As part of his workup he underwent a CT a/p that showed concern for a high grade SBO with concern for a close loop bowel obstruction. On exam patient was tender to palpation throughout his abdomen. Given concern for closed loop obstruction, history & exam we offered patient surgical intervention in his case and he was agreeable. We took him to the OR and he underwent an exploratory laparotomy with release of small bowel obstruction. Post operatively patient was kept NPO with an NGT in place. Pain controlled with prn meds as needed. DVT prophylaxis was started. Once patient started having some return of bowel function, initially with flatus, his NGT was removed and he was started on clear liquids. Ambulation and pulmonary toilet were encouraged each day. Patient then started having BMs, at first they were frequent and loose, cdiff was negative. As diet was advanced to fulls to low fiber they did begin to slow down. On 05/07 the patient was ultimately deemed stable for discharge to home. Total Time Total Time Spent Total Time Spent (In Minutes): 15 Discharge Plan Discharge Items Patient Disposition: Home - Self-Care Reason For Visit: SBO Discharge Diagnosis: small bowel obstruction exploratory laparotomy Activity: Per Instructions section Lifting: No more than 10 pounds Bathing Comment: may shower; no soaking in tubs/pools x 2 weeks Exercise/Sports: Wait until after follow-up appointment Driving/Machine Use: no driving while taking narcotics for pain Non-emergency contact: Surgeon Call non-emergency contact if: you have any medication questions, your symptoms worsen, your pain is not controlled, you have a fever, your temperature is above 101.5, your wound has increased redness, your wound has increased drainage and your wound pain has increased Follow-up/Referrals: Ivan Edwards DO [Physician] - 05/13/24 9:15 am (please call to schedule follow up in clinic within 2 weeks) Varghese De Leon Jr, DO [Physician] - Diet: Regular Addtl Attending Provider Instructions: SPECIAL CARE INSTRUCTIONS: * You have ann marie in place that will be removed at one of your follow up appointments (about 14 days from surgery). You may keep a dressing over your incision if needed for comfort with dry gauze/medical tape. Otherwise you may keep your incision open to air * You may shower 05/01. NO soaking in pools or baths for 2 weeks * No lifting greater than 10lbs. No strenuous exercise until cleared by surgeon. Light walking is accepted. * No driving until cleared by surgeon * May use Ibuprofen/Tylenol over the counter for pain as tolerated. Do not exceed 3grams of Tylenol per 24 hours * Expect some swelling and bruising. * Diet- continue a low fiber diet until seen by the surgeon Call your doctor if: * Temperature above 101 degrees, nausea/vomiting, fever/chills * Pain not relieved by pain medicine ordered * There is increased drainage or redness from any incision * You have any unanswered questions or concerns [phone]. FOLLOW UP VISIT: If not already scheduled, please call the office for a follow-up visit. Office Pending Studies at Discharge: No Stand-Alone Forms: My [facility] Medications and DC Order Prescriptions: Continued cyanocobalamin (vitamin B-12) [Vitamin B-12] 1,000 mcg Tablet 1,000 mcg PO QAM multivitamin Capsule 1 cap PO BID Patient Comments: DR WHIPPLE MENS DAILY MULTIVITAMIN AND MINERAL FORMULA omega-3 fatty acids Capsule 1,000 mg PO BID Patient Comments: [employer] Held polysaccharide iron complex [iFerex 150] 150 mg iron Capsule 150 mg PO QAM Hold Instructions: Resume on 05/14/24. guar gum Packet 1 packet PO QAM Hold Instructions: Resume on 05/14/24. do not take this until cleared by surgeon Patient Comments: 1 TEASPOON IN THE MORNING Rx Instructions: mix into at least 4 oz water or juice before administering Discharge Orders: Discharge Order (Routine); Ordered 05/07/24 Ordered By: Augie Hernandez/Other Patient Handouts: Low-Fiber Diet Admission Data Admit Date/Time: 04/29/24 12:44 Attending Provider: Ivan Edwards Admit Provider: Ivan Edwards Primary Care Provider: Julian Gray Other Providers: Darcie Anders; Nicholas Mario Other Interventions: Discharge Summary Assessment (RN) Last Done: 05/07/24 11:27 Coding Level of Care Code 09513 IN/OBS DISCH 30 MIN/LESS Diagnoses SBO (small bowel obstruction) K56.609 Time Spent (min) 15
== END 2024-05-07 13:01 | disposition home or self-care (01) | DRG 335 ==
LOC: ED 08:28 → OR 10:46 → 3N 12:44